=== PATIENT | male | born 1960 | race Caucasian/White ===

== ENCOUNTER 2016-10-11 12:24 | Inpatient (IN) ==
[2016-10-11] MEDS ORDERED: FUROSEMIDE 100 MG/10 ML VIAL IV STA (12:36)
[2016-10-11] MEDS ORDERED: FUROSEMIDE 40 MG/4 ML VIAL ONE (12:38)
[2016-10-11] MEDS ORDERED: NITROGLYCERIN 2% OINT 1 INCH/GM PACK TOP ONE (12:38)
[2016-10-11 12:50] LABS: Basophils # 0.1 10*3/uL (0.0-0.2); Basophils % 0.7 % (0.0-0.8); Hemoglobin 16.6 GM/DL (14.0-18.0); Immature Granulocytes % 0.6 %; Immature Granulocytes Absolute 0.06 #; Lymphocytes # 0.8 10*3/uL (1.4-4.0); Lymphocytes % 7.8 % (21.2-54.2); Mean Corpuscular HGB Conc 32.5 GM/DL (32-36); Mean Corpuscular Hemoglobin 31 PG (27-34); Mean Corpuscular Volume 95.9 FL (87-102); Mean Platelet Volume 10.1 FL (9.6-12.0); Monocytes # 0.4 10*3/uL (0.11-0.8); Monocytes % 3.9 % (1.7-12.7); Neutrophils # 8.6 10*3/uL (1.4-7.4); Platelet Count 220 T/CUMM (130-400); Red Blood Count 5.32 MC/CUMM (3.8-5.5); Red Cell Distribution Width 14.7 % (9.3-17.3); White Blood Count 9.9 T/CUMM (4-12)
--- NOTE | 2016-10-11 12:50 | XRay Report ---
Portable chest Date: 10/11/2016 Clinical history: Shortness of breath Comparison: None Technique: Portable AP sitting chest Findings: The heart is minimally to moderately enlarged with prior median sternotomy. Left subclavian atrioventricular pacemaker. Prominent pulmonary vasculature with diffuse parenchymal findings. Lane B lines are noted with small pleural effusions. Asymmetric density in the right infrahilar location. Degenerative changes are noted. Impression: Cardiomegaly with prior median sternotomy and left subclavian atrioventricular permanent pacemaker. Moderate pulmonary edema with small pleural effusions. It is difficult to exclude infiltration or other pathology in the right infrahilar location and follow-up chest x-ray is recommended. PROCEDURE INTERPRETED AT [facility] DEPARTMENT OF RADIOLOGY Final Report Signed by: Dr. Shelley Mejias
[2016-10-11] MEDS ORDERED: MORPHINE 2 MG/1 ML SYRINGE ONE (12:55)
--- NOTE | 2016-10-11 12:58 | EKG Report ---
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
[2016-10-11] MEDS ORDERED: NITROGLYCERIN 2% OINT 1 INCH/GM PACK TOP STA (13:21)
[2016-10-11 13:30] LABS: Bilirubin,Total 0.4 MG/DL (0.2-1.0); Calcium 8.1 MG/DL (8.5-10.1); Magnesium 2.1 MG/DL (1.8-2.4); Osmolality,Calculated 288.1 MOS/KG (273-304); Potassium 3.9 MMOL/L (3.5-5.1); Total Protein 7.6 G/DL (6.4-8.3); Troponin I Only 0.037 NG/ML (0.00-0.045)
[2016-10-11] MEDS ORDERED: NITROGLYCERIN DRIP 50 MG/250 ML BOTTLE IV ONE (14:02)
[2016-10-11] MEDS ORDERED: PROPOFOL 1,000 MG/100 ML BOTTLE IV ONE ×2 (14:10→17:53)
--- NOTE | 2016-10-11 14:13 | Emergency Department Note ---
Clementine Marcus Hilary, am scribing for, and in the presence of, Armando Chowdhury MD 12:51. Luciana Marcus Phillip K, MD, personally performed the services described in this documentation, ascribed by Sarah Spring in my presence, and it is both accurate and complete 412 . Arrival - Arrival Chief Complaint: Shortness of Breath Stated Complaint: shortness of breath ED Nursing Triage Note: Pt was transfer from [facility] for SOB - pt states that he started having SOB last night - pt on NRB 100 percent - pt very anxious and stating that he cant keep mask on o2 sat 81 percent at time of triage Mode of Arrival: Stretcher Limitations: No Limitations Source: Patient, RN Notes Reviewed Time Seen by Provider: 10/11/16 12:36 - History of Present Illness HPI Narrative: Pt is a 56 y/o male transferring from [facility] for complaints of SOB which onset last night. Patient confirmed coughing, throwing up, gagging and fever but denies swelling of legs and anemia. Patient also says he has abdominal pain in his LLQ and in the center. Pt has a PMHx of CHF, HTN, Pacemaker(Defib), cardiovascular problems (stents), and GI problems. No other complaints or problems stated in ED. Onset (ago): hour(s) Allergies/Adverse Reactions: Allergies Allergy/AdvReac Type Severity Reaction Status Date / Time meperidine [From Demerol] Allergy Unknown/Unable Verified 10/11/16 12:25 to obtain Home Medications: Home Medications Medication Instructions Recorded Confirmed Type Albuterol Sulfate [Ventolin HFA] 2 puff INH Q6H PRN 10/11/16 10/11/16 History Amiodarone Tab [Cordarone Tab] 200 mg PO DAILY 10/11/16 10/11/16 History Apixaban [Eliquis] 5 mg PO Q12H 10/11/16 10/11/16 History Benazepril [Lotensin] 5 mg PO DAILY 10/11/16 10/11/16 History Carvedilol [Coreg] 6.25 mg PO BID 10/11/16 10/11/16 History Ezetimibe [Zetia] 10 mg PO DAILY 10/11/16 10/11/16 History Furosemide Tab [Lasix Tab] 40 mg PO QPM 10/11/16 10/11/16 History Levothyroxine Tab [Synthroid Tab] 150 mcg PO DAILY 10/11/16 10/11/16 History Nitroglycerin Sl Tab [Nitrostat] 0.4 mg SL Q5M PRN 10/11/16 10/11/16 History Tamsulosin [Flomax] 0.4 mg PO DAILY 10/11/16 10/11/16 History Review of System - Review of System Constitutional: Present: fever Respiratory: Present: cough Cardiovascular: Absent: edema Gastrointestinal: Present: abdominal pain (LLQ), nausea, vomiting Medical,Surgical,& Family Hx - Medical History Medical History: noncontributory Cardio: History of: CHF, Hypertension, Pacemaker (Defib), Cardiovascular Problems (stents - [place]) Gastrointestinal: History of: GI Problems (ulcer) - Social History Smoking Status: Current every day smoker Frequency of Alcohol Use: None Type of Drug Use: None Exam Vital Signs: Vital Signs Temperature 97.2 F L 10/11/16 12:32 Pulse Rate 90 10/11/16 12:32 Respiratory Rate 22 10/11/16 12:32 Blood Pressure 173/101 10/11/16 12:32 O2 Sat by Pulse Oximetry 81 L 10/11/16 12:26 - General General appearance: alert, in no apparent distress - Head Head exam: Present: atraumatic, normocephalic - Eye Eye exam: Present: normal appearance, PERRL - ENT ENT exam: Present: mucous membranes moist, TM's normal bilaterally. Absent: mucous membranes dry - Neck Neck exam: Present: full ROM, trachea midline. Absent: tenderness - Chest Chest inspection: Present: symmetric chest wall rise. Absent: tenderness - Respiratory Respiratory exam: Present: rales - Cardiovascular Cardiovascular exam: Present: tachycardia - Abdominal Exam Abdominal exam: Present: soft, tenderness (Epigastric tenderness and LLQ) - Extremities Exam Extremities exam: Present: full ROM. Absent: tenderness, pedal edema - Back Exam Back exam: Present: full ROM. Absent: tenderness - Neurological Exam Neurological exam: Present: alert, oriented X3, CN II-XII intact. Absent: motor sensory deficit - Psychiatric Psychiatric exam: Present: normal affect, normal mood - Skin Skin exam: Present: warm, dry, intact, normal color. Absent: rash Course Course Narrative: Patient discussed with Dr. Barkley. Procedures - Intubation Time out performed: Yes sedative: Etomidate Mg Given: 20 paralytic: Succinylcholine Mg Given: 200 Laryngoscope: Jamel Assist Device Used: fiber optic device ET Tube Size: 8 ET Tube Uncuffed: No Tube Secured Depth (cm): 26 Tube Secured Location: lips Tube Placement Confirmation: visualized tube passing through cords, equal breath sounds bilaterally, confirmation detector color change Patient Tolerated Procedure: well Intubation Complications: none Results - Labs CBC & BMP: 10/11/16 12:39 10/11/16 12:39 Lab Results: I have reviewed the patients labs (BNP is 1920) Labs: Laboratory Tests 10/11/16 12:39 WBC 9.9 RBC 5.32 Hgb 16.6 Hct 51.0 Neut % (Auto) 87.0 H Lymph % (Auto) 7.8 L Neut # (Auto) 8.6 H Lymph # (Auto) 0.8 L - Diagnostic Findings Procedure: Chest x-ray: report reviewed by me (Cardiomegaly with prior median sternotomy and left subclavian atrioventricular permanent pacemaker. Moderate pulmonary edema with small pleural effusions. It is difficult to exclude infiltration or other pathology in the right infrahilar location adn follow-up chest x-ray is recommended.) Critical Care Time Critical Care Time: Yes Total Critical Care Time: 30 Attestation: Patient presents the ED and pulmonary edema. We tried offloading with nitrates and IV Lasix to normal male. Patient very little output of urine. Patient began to tire out so we intubated the patient. Patient's pressure remains elevated so we will start a nitroglycerin infusion. Disposition Clinical Impression: Pulmonary edema, Respiratory failure Case discussed with: patient, patient's physician Disposition: Still a Patient Condition: Critical Additional Instructions: Admit to Dr. Barkley ICU
[2016-10-11] MEDS ORDERED: DOPamine 800 MG/250 ML PREMIX IV ONE (14:33)
--- NOTE | 2016-10-11 14:51 | Cardiology History & Physical ---
Assessment and Plan - Time spent with patient Time spent with patient: Greater than 30 minutes (1) CAD (coronary artery disease) Status: Chronic Assessment and plan: See plan of care listed below Current Visit: Yes (2) Status post aorto-coronary artery bypass graft Status: Chronic Assessment and plan: See plan of care listed below Current Visit: Yes (3) Dyslipidemia Status: Chronic Assessment and plan: See plan of care listed below Current Visit: Yes (4) Hypotension Status: Acute Current Visit: Yes (5) Abnormal chest x-ray Status: Acute Assessment and plan: See plan of care listed below Current Visit: Yes (6) Pulmonary edema Status: Acute Assessment and plan: See plan of care listed below Current Visit: Yes Qualifiers: Chronicity: acute Qualified Code(s): J81.0 - Acute pulmonary edema (7) Respiratory failure Status: Acute Assessment and plan: See plan of care listed below Current Visit: Yes Qualifiers: Chronicity: acute History of Present Illness Chief complaint: CHF, respiratory failure History of present illness: Patient is being seen in the Emergency Department. Patient is intubated and sedated and the majority of this information is taken from medical records and staff. Risk factors include: known coronary artery disease status post CABG (thought to be in the last year), history of hypertension, dyslipidemia, tobaccoism. History of pacemaker and/or defibrillator. I am told he has had several stents placed in [place], [place] though I do not know when or locations of stent. Patient was transferred in via ambulance from [facility] to [facility] after experiencing worsening shortness of breath. On arrival to the emergency department patient was severely tachypneic, wearing 100% nonrebreather with an SPO2 saturation noted to be 81%. He was electively intubated in the emergency department. Review of his chest x-ray reveals pulmonary edema and probable pneumonia. In the emergency room, blood pressure is noted to be 56/40, heart rate of 68. After dopamine was initiated, blood pressure and increased to 80/ 60. Appears to be in regular sinus rhythm with some pacing. It is my understanding that he was able to speak to his prior to being intubated and she is on her way. Patient did receive 1 or 2 units of IV fluid for resuscitation from the transfer to our unit. He has been given 80 mg of IV Lasix on arrival to the ER. Reviewing his home medications it is apparent that he must have atrial fibrillation as he takes Eliquis and Amiodarone. I see no aspirin or Plavix which leads me to believe that his stents are greater than 12 months old. Awaiting his records as we have requested. Discussed with Dr. Barkley and he is agreeable to admit patient. Continue to cycle CIEs, EKG. Echo stat, Dopamine and titrate to increase BP. IV Levaquin, FRIED culture. Continue with resuscitative measures, airway secure. 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 Interrogate his device tomorrow morning. ASSESSMENT/PLAN: 1. RESPIRATORY FAILURE -intubated at this point. Continue to support with mechanical ventilation. 2. CHF -at this time, it is difficult to know if his CHF is acute on chronic. Certainly this is an acute exacerbation [place] [employer] classification IV. When blood pressure will allow, we will introduce appropriate medications to treat heart failure. He is currently received IV Lasix 80 mg 3. HYPOTENSION -dopamine titration 4. POSSIBLE PNEUMONIA -start Levaquin 500 mg IV daily daily chest x-ray 5. ATRIAL FIBRILLATION -suspect history of atrial fibrillation. Continue his amiodarone. Will hold his Eliquis should the patient need some type of intervention. Will cover with Lovenox accordingly. 6. DYSLIPIDEMIA -incorporate lipid-lowering agent when able. Home Medications Medication Instructions Recorded Confirmed Type Albuterol Sulfate [Ventolin HFA] 2 puff INH Q6H PRN 10/11/16 10/11/16 History Amiodarone Tab [Cordarone Tab] 200 mg PO DAILY 10/11/16 10/11/16 History Apixaban [Eliquis] 5 mg PO Q12H 10/11/16 10/11/16 History Benazepril [Lotensin] 5 mg PO DAILY 10/11/16 10/11/16 History Carvedilol [Coreg] 6.25 mg PO BID 10/11/16 10/11/16 History Ezetimibe [Zetia] 10 mg PO DAILY 10/11/16 10/11/16 History Furosemide Tab [Lasix Tab] 40 mg PO QPM 10/11/16 10/11/16 History Levothyroxine Tab [Synthroid Tab] 150 mcg PO DAILY 10/11/16 10/11/16 History Nitroglycerin Sl Tab [Nitrostat] 0.4 mg SL Q5M PRN 10/11/16 10/11/16 History Tamsulosin [Flomax] 0.4 mg PO DAILY 10/11/16 10/11/16 History Allergies Allergy/AdvReac Type Severity Reaction Status Date / Time meperidine [From Demerol] Allergy Unknown/Unable Verified 10/11/16 12:25 to obtain ROS unobtainable: due to endotracheal tube Medical,Surgical,& Family Hx - Medical History Cardio: History of: CHF, CAD, Hypertension, Pacemaker (Defib), Cardiovascular Problems (stents - [place], [place]) Gastrointestinal: History of: GI Problems (ulcer) - Social History Smoking Status: Current every day smoker Frequency of Alcohol Use: None Type of Drug Use: None Cardiology Physical Exam - Constitutional Vitals: Vital Signs Temp Pulse Resp BP Pulse Ox 97.2 F L 90 12 173/101 81 L 10/11/16 12:32 10/11/16 12:32 10/11/16 14:00 10/11/16 12:32 10/11/16 12:26 Intake and Output 10/10/16 10/11/16 10/11/16 23:59 07:59 15:59 Other: Weight 90.718 kg Patient Weight 10/11/16 23:59 Weight 90.718 kg Exam: General: [Appears critically ill. Intubated and sedated.] HEENT: [normocephalic, atraumatic. Mucous membranes moist. No jaundice noted. Conjunctiva moist and clear, sclerae anicteric] Neck: Difficult to assess for JVD due to habitus. No obvious thyromegaly or HJR noted. No carotid bruit appreciated. No tracheal deviation noted Cardiac: [Regular rate and rhythm.] [No obvious murmur rub or gallop.]. Well- healed midsternal incision Lungs: [Rales noted posteriorly, coarse sounds throughout. Abdomen: Soft, bowel sounds hypoactive nontender and nondistended. No abdominal bruit or thrill noted. No masses noted. Musculoskeletal: No fluid collection. Decreased range of motion is noted. Extremities: No clubbing, cyanosis noted. [ No edema noted.] Upper extremity pulses 1+. Lower extremity pulses 1+. Capillary refill less than 3 seconds. Skin: No unusual lesions or rashes. No skin breakdown appreciated. Neuro: No essential tremor noted. This time unable to perform further neuro exam due to patient's intubation and sedated state Result/EKG - Labs CBC & BMP: 10/11/16 12:39 10/11/16 12:39 Lab Results: I have reviewed the past 24 hour labs Labs: Laboratory Results - last 24 hr 10/11/16 10/11/16 10/11/16 12:39 12:39 12:39 WBC 9.9 RBC 5.32 Hgb 16.6 Hct 51.0 MCV 95.9 MCH 31 MCHC 32.5 RDW 14.7 Plt Count 220 MPV 10.1 Neut % (Auto) 87.0 H Lymph % (Auto) 7.8 L [place] % (Auto) 3.9 Eos % (Auto) 0.0 Baso % (Auto) 0.7 Neut # (Auto) 8.6 H Lymph # (Auto) 0.8 L [place] # (Auto) 0.4 Eos # (Auto) 0.0 Baso # (Auto) 0.1 Immature Gran % 0.6 Nucleated RBC % 0.0 Immature Gran # 0.06 Nucleated RBCs # 0.00 D-Dimer, Quantitative <= 0.5 Sodium 142 Potassium 3.9 Chloride 108 H Carbon Dioxide 23 Anion Gap 14.9 BUN 21 H Creatinine 1.50 H GFR Calculation 64 BUN/Creatinine Ratio 14.00 Glucose 159 H Calculated Osmolality 288.1 Calcium 8.1 L Magnesium 2.1 Total Bilirubin 0.40 AST 21 ALT 18 Alkaline Phosphatase 84 Troponin I 0.037 B-Natriuretic Peptide Total Protein 7.6 Albumin 4.0 Globulin 3.6 H Albumin/Globulin Ratio 1.1 10/11/16 12:39 WBC RBC Hgb Hct MCV MCH MCHC RDW Plt Count MPV Neut % (Auto) Lymph % (Auto) [place] % (Auto) Eos % (Auto) Baso % (Auto) Neut # (Auto) Lymph # (Auto) [place] # (Auto) Eos # (Auto) Baso # (Auto) Immature Gran % Nucleated RBC % Immature Gran # Nucleated RBCs # D-Dimer, Quantitative Sodium Potassium Chloride Carbon Dioxide Anion Gap BUN Creatinine GFR Calculation BUN/Creatinine Ratio Glucose Calculated Osmolality Calcium Magnesium Total Bilirubin AST ALT Alkaline Phosphatase Troponin I B-Natriuretic Peptide 1920 H Total Protein Albumin Globulin Albumin/Globulin Ratio - Diagnostic Findings Procedure: Chest x-ray: report reviewed by me - EKG EKG results: interpreted by me EKG shows: sinus rhythm
[2016-10-11] MEDS: MORPHINE 2 MG/1 ML SYRINGE IV PRN (15:16)
[2016-10-11] MEDS: DOPamine 800 MG/250 ML PREMIX IV SCH (15:17)
[2016-10-11] MEDS ORDERED: MIDAZOLAM 10 MG/2 ML VIAL IV STA (15:19)
[2016-10-11] MEDS ORDERED: ETOMIDATE 20 MG/10 ML VIAL IV STA (15:22)
[2016-10-11] MEDS ORDERED: SUCCINYLCHOLINE 200 MG/10 ML VIAL IV STA (15:23)
[2016-10-11] MEDS ORDERED: NITROGLYCERIN DRIP 50 MG/250 ML BOTTLE IV SCH (15:30)
[2016-10-11] MEDS ORDERED: ONDANSETRON 4 MG/2 ML VIAL IV PRN (15:33)
[2016-10-11] MEDS ORDERED: DOCUSATE SODIUM 100 MG CAPSULE PO PRN (15:33)
[2016-10-11] MEDS ORDERED: ACETAMINOPHEN 325 MG TABLET PO PRN (15:33)
[2016-10-11] MEDS ORDERED: LACTULOSE 20 GM/30 ML UDCUP PO PRN (15:33)
[2016-10-11] MEDS ORDERED: ZALEPLON 5 MG CAPSULE PO PRN (15:33)
[2016-10-11] MEDS: PROPOFOL 1,000 MG/100 ML BOTTLE IV SCH ×2 (15:35→22:07)
[2016-10-11] MEDS ORDERED: MAGNESIUM SULF RIDER 2 GM in PREMIX 1 EACH IV PRN (15:40)
[2016-10-11] MEDS ORDERED: MAGNESIUM SULF RIDER 4 GM in PREMIX 1 EACH IV PRN (15:40)
[2016-10-11] MEDS ORDERED: POTASSIUM CHLORIDE RIDER 10 MEQ in PREMIX 1 EACH IV PRN (15:40)
[2016-10-11] MEDS ORDERED: DEXTROSE 50% 25 GM/50 ML VIAL IV PRN (15:51)
[2016-10-11] MEDS ORDERED: GLUCAGON 1 MG VIAL IM PRN (15:51)
[2016-10-11] MEDS ORDERED: PANTOPRAZOLE 40 MG TABLET PO SCH (16:00)
[2016-10-11] MEDS ORDERED: FUROSEMIDE 40 MG/4 ML VIAL IV SCH (16:00)
--- NOTE | 2016-10-11 16:14 | ECHO Report ---
Boy Atkinson Exam Date: 10/11/2016 15:19 Referring Physician: Technologist: Gayla Castelan RDCS Age: 56 Ht (in): 74 Wt (lb): 200 Gender: M Exam Location: [facility] Echo Indications: Acute respiratory failure, unspecified whether with hypoxia or hypercapnia, Shortness of breath, Essential (primary) hypertension, Abnormal CXR, CAD with previoius stents, Cough, Fever, Pulmonary edema, Dyslipidemia, Heart failure, unspecified, Nicotine dependence, cigarettes, uncomplicated, Presence of automatic (implantable) cardiac defibrillator BP: 129 / 81 HR: 126 Rhythm: Sinus Technical Quality: IMPRESSIONS Left ventricular ejection fraction is estimated at 10-15 %. Grade III/IV diastolic dysfunction (restrictive filling pattern), severely elevated filling pressures. Normal right ventricular size. The right atrium is mildly enlarged. The left atrium is mildly enlarged. Mildly thickened mitral valve. Trace mitral valve regurgitation. Aortic valve sclerosis. No aortic valve regurgitation. Moderate tricuspid valve regurgitation. [id number]. Trace pulmonary valve regurgitation. Normal pericardium without effusion. Normal ascending aorta dimension. MEASUREMENTS (Male / Female) Normal Values 2D ECHO LV Diastolic Diameter PLAX 6.1 cm 4.2 - 5.9 / 3.9 - 5.3 cm LV Systolic Diameter PLAX 6.8 cm LV Fractional Shortening PLAX -10.3 % IVS Diastolic Thickness 1.0 cm 0.6 - 1.0 / 0.6 - 0.9 cm LVPW Diastolic Thickness 1.0 cm 0.6 - 1.0 / 0.6 - 0.9 cm RV Internal Dim ED PLAX 3.2 cm Aortic Root Diameter 3.4 cm LA Systolic Diameter LX 4.8 cm 3.0 - 4.0 / 2.7 - 3.8 cm FINDINGS Left Ventricle Moderately increased left ventricular cavity size. Normal left ventricular wall thickness. Left ventricular ejection fraction is estimated at 10-15 %.Grade III/IV diastolic dysfunction (restrictive filling pattern), severely elevated filling pressures. . Abnormal septal motion. Right Ventricle Normal right ventricular size. Catheter/pacemaker wire visualized in the right ventricle. Right Atrium The right atrium is mildly enlarged. Left Atrium The left atrium is mildly enlarged. Mitral Valve Mildly thickened mitral valve. Trace mitral valve regurgitation. Aortic Valve Aortic valve sclerosis. No aortic valve regurgitation. Tricuspid Valve Morphologically normal tricuspid valve. Moderate tricuspid valve regurgitation. [id number]. Pulmonic Valve Morphologically normal pulmonic valve. Trace pulmonary valve regurgitation. Pericardium Normal pericardium without effusion. Aorta Normal ascending aorta dimension. Marcelino Barkley (Electronically Signed) Final Date: 11 October 2016 16:13
--- NOTE | 2016-10-11 16:33 | EKG Report ---
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 Electronically Signed On 10-11-16 17:17:56 CDT by CHERIE ALCALA [id number]
[2016-10-11] MEDS ORDERED: ENOXAPARIN 80 MG/0.8 ML SYRINGE SUBCUT ONE (16:50)
[2016-10-11] MEDS ORDERED: LEVOFLOXACIN INJ 100 ML IV ONE (16:50)
[2016-10-11] MEDS: ENOXAPARIN 80 MG/0.8 ML SYRINGE SUBCUT SCH (17:05)
--- NOTE | 2016-10-11 17:10 | XRay Report ---
Portable chest Date: 10/11/2016 Clinical history: Endotracheal and nasogastric tube placement Comparison: 10/11/2016 Technique: Portable AP sitting chest Findings: Persistent cardiomegaly with prior median sternotomy. Left subclavian atrioventricular permanent pacemaker. Endotracheal tube and nasogastric tube are in satisfactory position. Progressive diffuse parenchymal findings especially the right infrahilar location with small pleural effusions. Degenerative changes are noted. Impression: Endotracheal tube and nasogastric tube in satisfactory position. Progressive significant pulmonary edema/bilateral pneumonia. Findings remain more prominent in the right infrahilar location and follow-up chest x-ray is recommended to document clearing and exclude additional underlying pathology. Small pleural effusions. Status post median sternotomy with left subclavian atrioventricular permanent pacemaker. PROCEDURE INTERPRETED AT [facility] DEPARTMENT OF RADIOLOGY Final Report Signed by: Dr. Shelley Mejias
[2016-10-11 17:12] LABS: Troponin I Only 0.074 NG/ML (0.00-0.045)
[2016-10-11] MEDS: LEVOFLOXACIN INJ 500 MG in PREMIX 1 EACH IV SCH (17:21)
[2016-10-11] MEDS ORDERED: SUCCINYLCHOLINE 200 MG/10 ML VIAL ONE (18:12)
[2016-10-11] MEDS ORDERED: ETOMIDATE 20 MG/10 ML VIAL IV ONE (18:12)
[2016-10-11 18:23] LABS: ABG Base Excess -2.8 MMOL/L (-2.5-2.5); ABG Oxygen Saturation 93.1 % (95-100); ABG PH 7.393 (7.35-7.45); Allen Test Positive; Pt O2 Delivery Device Ventilator
[2016-10-11] MEDS: INSULIN REGULAR 100 UNIT/ML SUBCUT SCH ×2 (18:34→21:14)
[2016-10-11] MEDS: ASPIRIN EC 325 MG TABLET PO SCH (18:45)
[2016-10-11] MEDS ORDERED: ALBUTEROL 2.5 MG/3 ML NEB RESP TX PRN (19:00)
[2016-10-11] MEDS: ALBUTEROL/IPRATROPIUM 3 ML NEB RESP TX SCH ×2 (19:22→23:43)
[2016-10-11] MEDS ORDERED: CARVEDILOL 6.25 MG TABLET PO SCH (21:00)
[2016-10-11] MEDS: FUROSEMIDE 40 MG/4 ML VIAL IV SCH (21:14)
[2016-10-12 00:17] LABS: Troponin I Only 0.113 NG/ML (0.00-0.045)
[2016-10-12] MEDS: MORPHINE 2 MG/1 ML SYRINGE IV PRN ×2 (02:29→23:48)
[2016-10-12] MEDS: PROPOFOL 1,000 MG/100 ML BOTTLE IV SCH ×8 (02:37→23:20)
[2016-10-12 03:19] LABS: ABG Base Excess -0.8 MMOL/L (-2.5-2.5); ABG HCO3 22.2 MMOL/L (20-26); ABG Oxygen Saturation 99.5 % (95-100); ABG PCO2 32.6 MM HG (35-48); ABG PH 7.451 (7.35-7.45); ABG PO2 318.5 MM HG (80-95); ABG TCO2 23.2 MMOL/L (23-27); Allen Test Positive; Pt O2 Delivery Device Ventilator
[2016-10-12] MEDS: ALBUTEROL/IPRATROPIUM 3 ML NEB RESP TX SCH ×6 (03:54→23:47)
[2016-10-12 04:53] LABS: Basophils % 0.3 % (0.0-0.8); Eosinophils % 0.1 % (0.00-10.9); Hematocrit 52.8 VOL% (42.0-52.0); Hemoglobin 17.3 GM/DL (14.0-18.0); Immature Granulocytes % 0.6 %; Immature Granulocytes Absolute 0.08 #; Lymphocytes # 1.8 10*3/uL (1.4-4.0); Lymphocytes % 12.7 % (21.2-54.2); Mean Corpuscular HGB Conc 32.8 GM/DL (32-36); Mean Corpuscular Hemoglobin 31 PG (27-34); Mean Corpuscular Volume 93.5 FL (87-102); Mean Platelet Volume 11.6 FL (9.6-12.0); Monocytes # 1.4 10*3/uL (0.11-0.8); Monocytes % 10.1 % (1.7-12.7); Neutrophils # 10.7 10*3/uL (1.4-7.4); Neutrophils % 76.2 % (38.7-73.9); Platelet Count 183 T/CUMM (130-400); Red Blood Count 5.65 MC/CUMM (3.8-5.5); Red Cell Distribution Width 14.6 % (9.3-17.3); White Blood Count 14.1 T/CUMM (4-12)
[2016-10-12 05:14] LABS: Hypochromasia Slight; Microcytosis Slight; Platelet Estimate Adequate
[2016-10-12 05:34] LABS: Calcium 8.6 MG/DL (8.5-10.1); Osmolality,Calculated 291.7 MOS/KG (273-304); Risk Ratio 3.84; Total Protein 7.4 G/DL (6.4-8.3)
[2016-10-12] MEDS: ENOXAPARIN 80 MG/0.8 ML SYRINGE SUBCUT SCH (05:57)
--- NOTE | 2016-10-12 06:29 | Cardiology Progress Note ---
Cardiology - PN: Subj Interval history: Cardiology note 56-year-old man with ischemic cardiomyopathy transferred from [facility] yesterday with acute pulmonary edema. Patient intubated in the emergency room. Still hypotensive on dopamine at 7 mics Telemetry shows sinus rhythm with ventricular pacing in the 70s-80s O2 sat 99 on 60% FiO2 Blood pressure 130/86 on 7 mics of dopamine Regular rhythm no murmur Decreased breath sounds bibasilar crackles Abdomen soft benign No leg edema Lab data today White count 14.1 hemoglobin 17.3 hematocrit 52.8 Sodium 145 potassium 4.0 chloride 108 CO2 20 BUN 24 creatinine 1.40 BNP 1920 Negative troponin Echo shows ejection fraction of 15-20% with mildly dilated left atrium, aortic sclerosis, normal RV function, moderate TR PA pressure 45 and grade 3 diastolic dysfunction no effusion Impression Pulmonary edema Combined systolic and diastolic heart failure Ischemic cardia myopathy EF 15-20% Status post CABG 1 year ago Status post defibrillator Plan IV Lasix 80 mg twice daily BMP in a.m. Wean dopamine as tolerated Wean ventilator as tolerated No family present at this time Continue amiodarone Decrease Lovenox Exam (Progress Note) - Constitutional Vitals: Period Temp Pulse Resp BP Sys/Sims Pulse Ox Last 24 Hr 97.7 F-98.4 F 70-111 12-19 80-155/55-98 90-100 Result/EKG - Labs CBC & BMP: 10/12/16 02:47 10/12/16 02:47 Labs: Laboratory Results - last 24 hr 10/11/16 10/11/16 10/11/16 16:40 16:40 17:35 WBC RBC Hgb Hct MCV MCH MCHC RDW Plt Count MPV Neut % (Auto) Lymph % (Auto) [place] % (Auto) Eos % (Auto) Baso % (Auto) Neut # (Auto) Lymph # (Auto) [place] # (Auto) Eos # (Auto) Baso # (Auto) Immature Gran % Nucleated RBC % Immature Gran # Nucleated RBCs # Platelet Estimate Hypochromasia Microcytosis ABG pH ABG pCO2 ABG pO2 ABG HCO3 ABG Total CO2 ABG O2 Saturation ABG Base Excess FiO2 Sodium Potassium Chloride Carbon Dioxide Anion Gap BUN Creatinine GFR Calculation BUN/Creatinine Ratio Glucose POC Glucose 143 H Calculated Osmolality Calcium Total Bilirubin AST ALT Alkaline Phosphatase Total Creatine Kinase 209 CK-MB (CK-2) 1.5 Troponin I 0.074 H D Total Protein Albumin Globulin Albumin/Globulin Ratio Triglycerides Cholesterol LDL Cholesterol VLDL Cholesterol HDL Cholesterol Heart Disease Risk Ratio TSH 3rd Generation 0.669 10/11/16 10/11/16 10/11/16 17:53 18:34 20:53 WBC RBC Hgb Hct MCV MCH MCHC RDW Plt Count MPV Neut % (Auto) Lymph % (Auto) [place] % (Auto) Eos % (Auto) Baso % (Auto) Neut # (Auto) Lymph # (Auto) [place] # (Auto) Eos # (Auto) Baso # (Auto) Immature Gran % Nucleated RBC % Immature Gran # Nucleated RBCs # Platelet Estimate Hypochromasia Microcytosis ABG pH 7.393 ABG pCO2 35.0 ABG pO2 67.0 L ABG HCO3 22.0 ABG Total CO2 18.0 L ABG O2 Saturation 93.1 L ABG Base Excess -2.8 L FiO2 100.00 Sodium Potassium Chloride Carbon Dioxide Anion Gap BUN Creatinine GFR Calculation BUN/Creatinine Ratio Glucose POC Glucose 129 H 116 H Calculated Osmolality Calcium Total Bilirubin AST ALT Alkaline Phosphatase Total Creatine Kinase CK-MB (CK-2) Troponin I Total Protein Albumin Globulin Albumin/Globulin Ratio Triglycerides Cholesterol LDL Cholesterol VLDL Cholesterol HDL Cholesterol Heart Disease Risk Ratio TSH 3rd Generation 10/11/16 10/12/16 10/12/16 23:41 02:47 02:47 WBC 14.1 H D RBC 5.65 H Hgb 17.3 Hct 52.8 H MCV 93.5 MCH 31 MCHC 32.8 RDW 14.6 Plt Count 183 MPV 11.6 Neut % (Auto) 76.2 H Lymph % (Auto) 12.7 L [place] % (Auto) 10.1 Eos % (Auto) 0.1 Baso % (Auto) 0.3 Neut # (Auto) 10.7 H Lymph # (Auto) 1.8 [place] # (Auto) 1.4 H Eos # (Auto) 0.0 Baso # (Auto) 0.0 Immature Gran % 0.6 Nucleated RBC % 0.0 Immature Gran # 0.08 Nucleated RBCs # 0.00 Platelet Estimate Adequate Hypochromasia Slight Microcytosis Slight ABG pH ABG pCO2 ABG pO2 ABG HCO3 ABG Total CO2 ABG O2 Saturation ABG Base Excess FiO2 Sodium 145 Potassium 4.0 Chloride 108 H Carbon Dioxide 20 L Anion Gap 21.0 H BUN 24 H Creatinine 1.40 H GFR Calculation 69 BUN/Creatinine Ratio 17.00 Glucose 98 POC Glucose Calculated Osmolality 291.7 Calcium 8.6 Total Bilirubin 1.00 AST 31 ALT 19 Alkaline Phosphatase 75 Total Creatine Kinase 209 CK-MB (CK-2) 1.7 Troponin I 0.113 H D Total Protein 7.4 Albumin 4.0 Globulin 3.4 Albumin/Globulin Ratio 1.1 Triglycerides 150 Cholesterol 219 H LDL Cholesterol 143.0 VLDL Cholesterol 30.0 HDL Cholesterol 57 Heart Disease Risk Ratio 3.84 TSH 3rd Generation 10/12/16 03:01 WBC RBC Hgb Hct MCV MCH MCHC RDW Plt Count MPV Neut % (Auto) Lymph % (Auto) [place] % (Auto) Eos % (Auto) Baso % (Auto) Neut # (Auto) Lymph # (Auto) [place] # (Auto) Eos # (Auto) Baso # (Auto) Immature Gran % Nucleated RBC % Immature Gran # Nucleated RBCs # Platelet Estimate Hypochromasia Microcytosis ABG pH 7.451 H ABG pCO2 32.6 L ABG pO2 318.5 H ABG HCO3 22.2 ABG Total CO2 23.2 ABG O2 Saturation 99.5 ABG Base Excess -0.8 FiO2 100.00 Sodium Potassium Chloride Carbon Dioxide Anion Gap BUN Creatinine GFR Calculation BUN/Creatinine Ratio Glucose POC Glucose Calculated Osmolality Calcium Total Bilirubin AST ALT Alkaline Phosphatase Total Creatine Kinase CK-MB (CK-2) Troponin I Total Protein Albumin Globulin Albumin/Globulin Ratio Triglycerides Cholesterol LDL Cholesterol VLDL Cholesterol HDL Cholesterol Heart Disease Risk Ratio TSH 3rd Generation Quality Measures - VTE Contraindication to Pharmacological VTE Prophylaxis: Already on Theraputic Agent , No Prophylaxis Needed
--- NOTE | 2016-10-12 06:32 | Pulmonology Consult Note ---
Assessment and Plan (1) Ischemic cardiomyopathy Status: Acute Assessment and plan: The patient apparently has a severe ischemic cardiomyopathy with a very reduced ejection fraction. Now he presents with pulmonary edema. Current Visit: Yes (2) Pulmonary edema Status: Acute Assessment and plan: He comes in with pulmonary edema and is on the ventilator. He is getting dopamine and getting diuretics. His oxygenation has improved. Current Visit: Yes Qualifiers: Chronicity: acute Qualified Code(s): J81.0 - Acute pulmonary edema (3) Respiratory failure Status: Acute Assessment and plan: He did require intubation for his respiratory failure. His oxygenation is better. He may have a component of COPD. Current Visit: Yes Qualifiers: Chronicity: acute (4) CAD (coronary artery disease) Status: Chronic Assessment and plan: The patient has had previous bypass surgery and stents. Current Visit: Yes History of Present Illness Chief complaint: Ventilator management History of present illness: Mr. Atkinson is a 56 year old white male that has a history of having previous bypass surgery and has hypertension and is a smoker. He has had a defibrillator in place. He has had multiple stents in the past. He came in with worsening shortness of breath and had to be intubated. He was quite hypoxemic yesterday. His oxygenation is much better today. He is felt to be in congestive heart failure. He does have some right lower lobe infiltrate and may have some pneumonia. It is unclear if he has significant COPD. His blood pressure stable on the ventilator. Home Medications Medication Instructions Recorded Confirmed Type Albuterol Sulfate [Ventolin HFA] 2 puff INH Q6H PRN 10/11/16 10/11/16 History Amiodarone Tab [Cordarone Tab] 200 mg PO DAILY 10/11/16 10/11/16 History Apixaban [Eliquis] 5 mg PO Q12H 10/11/16 10/11/16 History Benazepril [Lotensin] 5 mg PO DAILY 10/11/16 10/11/16 History Carvedilol [Coreg] 6.25 mg PO BID 10/11/16 10/11/16 History Ezetimibe [Zetia] 10 mg PO DAILY 10/11/16 10/11/16 History Furosemide Tab [Lasix Tab] 40 mg PO QPM 10/11/16 10/11/16 History Levothyroxine Tab [Synthroid Tab] 150 mcg PO DAILY 10/11/16 10/11/16 History Nitroglycerin Sl Tab [Nitrostat] 0.4 mg SL Q5M PRN 10/11/16 10/11/16 History Tamsulosin [Flomax] 0.4 mg PO DAILY 10/11/16 10/11/16 History Allergies Allergy/AdvReac Type Severity Reaction Status Date / Time Penicillins Allergy Unknown/Unable Verified 10/11/16 18:21 to obtain meperidine [From Demerol] AdvReac Mild Vomiting Verified 10/11/16 18:20 ROS unobtainable: due to endotracheal tube (He is sedated on the ventilator at present) Exam (Pulmonay) H&P - Constitutional Vitals: Period Temp Pulse Resp BP Sys/Sims Pulse Ox Last 24 Hr 97.7 F-98.4 F 70-111 12-19 80-155/55-98 90-100 General appearance: normal weight, no acute distress, other (He looks comfortable on the ventilator) - Head Head exam: Present: normal inspection, normocephalic - Eye Eye exam: Present: EOMI. Absent: scleral icterus Pupils: Present: SHOBHA - ENT ENT exam: Present: normal exam, other (ET tube is in good position) - Neck Neck exam: Present: normal inspection. Absent: lymphadenopathy, thyromegaly - Respiratory Respiratory exam: Present: clear to auscultation bilaterally. Absent: wheezes - Cardiovascular Cardiovascular exam: Present: regular rate and rhythm, other (He has a midsternal scar). Absent: gallop, JVD, systolic murmur - GI/Abdominal GI/Abdominal exam: Present: normal bowel sounds, soft. Absent: organomegaly, tenderness - Extremities Exam Extremities exam: Absent: calf tenderness, edema - Neurological Exam Neurological exam: Present: other (He does arouse and respond appropriately.) - Psychiatric Psychiatric exam: Present: normal affect - Skin Skin exam: Present: warm, dry Medical,Surgical,& Family Hx - Medical History Cardio: History of: CHF, CAD, Hypertension, Pacemaker (Defib), Cardiovascular Problems (stents - JESUS López) Neurology: No history of: Seizures HEENT: Comment Only: Eye Problem (glasses) Endocrine: History of: Thyroid Disorder Comment Only: Endocrine Problems (takes synthroid) Respiratory: History of: Intubation Genitourinary: Comment Only: Prostate Problems (BPH) Gastrointestinal: History of: GERD, GI Problems (ulcer r/t BC powder use) Musculoskeletal: Comment Only: Musculoskeletal Problems (chronic back pain from fall out of deer stand) - Surgical History Cardiac Surgeries: Comment Only: Cardiac Surgery (CABG X3 december 18, 2015) - Family History Family History: Comment Only: Family Heart Disease (father) - Social History Smoking Status: Current every day smoker Frequency of Alcohol Use: None Type of Drug Use: None Results - Labs CBC & BMP: 10/12/16 02:47 10/12/16 02:47 Labs: His PO2 is 318 with a PCO2 32 and a pH of 7.45 this morning. His PO2 was only 67 yesterday. - Diagnostic Findings Procedure: Chest x-ray: image reviewed by me, report reviewed by me (Chest x- ray does show extensive bilateral infiltrates worse on the right.), Ultrasound: report reviewed by me (His echocardiogram showed an ejection fraction of 10-15%. ) Quality Measures - VTE Contraindication to Pharmacological VTE Prophylaxis: Already on Theraputic Agent , No Prophylaxis Needed
--- NOTE | 2016-10-12 06:46 | XRay Report ---
Referring Physician: Roopa Plunkett Exam: XR chest 1V portable Date: October 12, 2016 at 3:10 AM Reason: Shortness of breath Comparison: Chest one view portable October 11, 2016 Findings: An endotracheal tube, feeding tube and cardiac pacing device are again in place. The cardiac silhouette is again enlarged, and the patient is status post sternotomy. There are opacities within the right mid and lower lung zones and at the left lung base. This is concerning for pneumonia, atelectasis and likely pulmonary edema. No pneumothorax is identified, but there may be minimal right pleural fluid. The osseous structures appear stable. Impression: There has been no significant change. PROCEDURE INTERPRETED AT [facility] DEPARTMENT OF RADIOLOGY Final Report Signed by: Dr. Sacha Ray
[2016-10-12] MEDS: methylPREDNISolone SOD SUC 40 MG/1 ML VIAL IV SCH ×3 (07:20→22:41)
--- NOTE | 2016-10-12 08:07 | EKG Report ---
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
[2016-10-12] MEDS: INSULIN REGULAR 100 UNIT/ML SUBCUT SCH ×4 (08:18→20:20)
[2016-10-12 08:27] LABS: Troponin I Only 0.137 NG/ML (0.00-0.045)
[2016-10-12] MEDS: FUROSEMIDE 40 MG/4 ML VIAL IV SCH ×2 (09:00→16:02)
[2016-10-12] MEDS: EZETIMIBE 10 MG TABLET PO SCH (09:01)
[2016-10-12] MEDS: PANTOPRAZOLE 40 MG VIAL IV SCH (09:01)
[2016-10-12] MEDS: TAMSULOSIN 0.4 MG CAPSULE PO SCH (09:01)
[2016-10-12] MEDS: LEVOTHYROXINE 150 MCG TABLET PO SCH (09:01)
[2016-10-12] MEDS: AMIODARONE 200 MG TABLET PO SCH (09:02)
[2016-10-12] MEDS: ASPIRIN EC 325 MG TABLET PO SCH (09:02)
[2016-10-12] MEDS: DOPamine 800 MG/250 ML PREMIX IV SCH ×2 (12:02→16:08)
[2016-10-12] MEDS: LEVOFLOXACIN INJ 500 MG in PREMIX 1 EACH IV SCH (16:02)
[2016-10-13] MEDS: PROPOFOL 1,000 MG/100 ML BOTTLE IV SCH ×5 (02:38→22:29)
[2016-10-13] MEDS: ALBUTEROL/IPRATROPIUM 3 ML NEB RESP TX SCH ×6 (03:14→23:26)
[2016-10-13 05:27] LABS: Basophils % 0.1 % (0.0-0.8); Hematocrit 48.2 VOL% (42.0-52.0); Hemoglobin 15.8 GM/DL (14.0-18.0); Immature Granulocytes % 0.4 %; Immature Granulocytes Absolute 0.05 #; Lymphocytes # 0.9 10*3/uL (1.4-4.0); Lymphocytes % 6.6 % (21.2-54.2); Mean Corpuscular HGB Conc 32.8 GM/DL (32-36); Mean Corpuscular Hemoglobin 31 PG (27-34); Mean Platelet Volume 10.7 FL (9.6-12.0); Monocytes # 0.6 10*3/uL (0.11-0.8); Monocytes % 4.8 % (1.7-12.7); Neutrophils # 11.3 10*3/uL (1.4-7.4); Neutrophils % 88.1 % (38.7-73.9); Platelet Count 189 T/CUMM (130-400); Red Blood Count 5.13 MC/CUMM (3.8-5.5); Red Cell Distribution Width 14.8 % (9.3-17.3); White Blood Count 12.8 T/CUMM (4-12)
[2016-10-13 06:09] LABS: Albumin 3.6 G/DL (3.4-5.0); Bilirubin,Total 0.7 MG/DL (0.2-1.0); Calcium 8.2 MG/DL (8.5-10.1); Osmolality,Calculated 297.7 MOS/KG (273-304); Potassium 3.7 MMOL/L (3.5-5.1); Total Protein 6.7 G/DL (6.4-8.3)
--- NOTE | 2016-10-13 06:32 | Cardiology Progress Note ---
Cardiology - PN: Subj Interval history: Cardiology note 56-year-old man with ischemic cardia myopathy admitted with pulmonary edema. He completed a total of 11 hours on CPAP yesterday. Telemetry shows sinus rhythm at 70-80 range, rare PVC only Blood pressure 90/60 on 3.4 mics of dopamine O2 sat 100 on 60% FiO2 Regular rhythm distant heart tones, no murmur Decreased breath sounds with rhonchi in the bases but no wheezing No leg edema Lab data today White count 12.8 hemoglobin 15.8 hematocrit 48.2 Sodium 145 potassium 3.7 chloride 107 CO2 25 BUN 36 creatinine 1.40 glucose 126 Impression Ischemic cardia myopathy Pulmonary edema Ejection fraction 15-20% with grade 3 diastolic dysfunction Status post CABG status post defibrillator Active smoker COPD Plan Wean dopamine as tolerated Continue CPAP trials 80 mg Lasix IV twice daily Solu-Medrol nebs and Levaquin BMP in a.m. Exam (Progress Note) - Constitutional Vitals: Period Temp Pulse Resp BP Sys/Sims Pulse Ox Last 24 Hr 97.3 F-99.8 F 70-79 10-20 77-145/58-92 96-100 Result/EKG - Labs CBC & BMP: 10/13/16 04:43 10/13/16 04:42 Labs: Laboratory Results - last 24 hr 10/12/16 10/12/16 10/12/16 07:47 08:01 12:00 WBC RBC Hgb Hct MCV MCH MCHC RDW Plt Count MPV Neut % (Auto) Lymph % (Auto) [place] % (Auto) Eos % (Auto) Baso % (Auto) Neut # (Auto) Lymph # (Auto) [place] # (Auto) Eos # (Auto) Baso # (Auto) Immature Gran % Nucleated RBC % Immature Gran # Nucleated RBCs # Sodium Potassium Chloride Carbon Dioxide Anion Gap BUN Creatinine GFR Calculation BUN/Creatinine Ratio Glucose POC Glucose 92 107 H Calculated Osmolality Calcium Total Bilirubin AST ALT Alkaline Phosphatase Total Creatine Kinase 284 D CK-MB (CK-2) 1.8 Troponin I 0.137 H D Total Protein Albumin Globulin Albumin/Globulin Ratio 10/12/16 10/12/16 10/13/16 15:39 20:13 04:42 WBC RBC Hgb Hct MCV MCH MCHC RDW Plt Count MPV Neut % (Auto) Lymph % (Auto) [place] % (Auto) Eos % (Auto) Baso % (Auto) Neut # (Auto) Lymph # (Auto) [place] # (Auto) Eos # (Auto) Baso # (Auto) Immature Gran % Nucleated RBC % Immature Gran # Nucleated RBCs # Sodium 145 Potassium 3.7 Chloride 107 Carbon Dioxide 25 Anion Gap 16.7 H BUN 36 H Creatinine 1.40 H GFR Calculation 67 BUN/Creatinine Ratio 25.00 H Glucose 126 H POC Glucose 127 H 97 Calculated Osmolality 297.7 Calcium 8.2 L Total Bilirubin 0.70 AST 29 ALT 19 Alkaline Phosphatase 64 Total Creatine Kinase CK-MB (CK-2) Troponin I Total Protein 6.7 Albumin 3.6 Globulin 3.1 Albumin/Globulin Ratio 1.1 10/13/16 04:43 WBC 12.8 H RBC 5.13 Hgb 15.8 Hct 48.2 MCV 94.0 MCH 31 MCHC 32.8 RDW 14.8 Plt Count 189 MPV 10.7 Neut % (Auto) 88.1 H Lymph % (Auto) 6.6 L [place] % (Auto) 4.8 Eos % (Auto) 0.0 Baso % (Auto) 0.1 Neut # (Auto) 11.3 H Lymph # (Auto) 0.9 L [place] # (Auto) 0.6 Eos # (Auto) 0.0 Baso # (Auto) 0.0 Immature Gran % 0.4 Nucleated RBC % 0.0 Immature Gran # 0.05 Nucleated RBCs # 0.00 Sodium Potassium Chloride Carbon Dioxide Anion Gap BUN Creatinine GFR Calculation BUN/Creatinine Ratio Glucose POC Glucose Calculated Osmolality Calcium Total Bilirubin AST ALT Alkaline Phosphatase Total Creatine Kinase CK-MB (CK-2) Troponin I Total Protein Albumin Globulin Albumin/Globulin Ratio Quality Measures - VTE Contraindication to Pharmacological VTE Prophylaxis: Already on Theraputic Agent , No Prophylaxis Needed
[2016-10-13] MEDS: methylPREDNISolone SOD SUC 40 MG/1 ML VIAL IV SCH ×3 (06:37→23:54)
--- NOTE | 2016-10-13 06:48 | Pulmonology Progress Note ---
Pulmonary - PN: Subj Interval history: 56-year-old white man that has a severe cardiomyopathy. He came in with pulmonary edema is on the ventilator. He may have some right lower lobe consolidation also. His oxygenation is improved and he did CPAP fairly well. He has stable vital signs and is quite comfortable now. Exam (Progress Note) - Constitutional Vitals: Period Temp Pulse Resp BP Sys/Sims Pulse Ox Last 24 Hr 97.3 F-99.8 F 70-79 10-20 77-145/58-92 96-100 Exam: General appearance: normal weight, no acute distress, other (He looks comfortable on the ventilator. His vital signs are stable.) - Head Head exam: Present: normal inspection, normocephalic - Eye Eye exam: Present: EOMI. Absent: scleral icterus Pupils: Present: SHOBHA - ENT ENT exam: Present: normal exam, other (ET tube is in good position) - Neck Neck exam: Present: normal inspection. Absent: lymphadenopathy, thyromegaly - Respiratory Respiratory exam: Present: clear to auscultation bilaterally. He has good breath sounds and moving air well. Absent: wheezes - Cardiovascular Cardiovascular exam: Present: regular rate and rhythm, other (He has a midsternal scar). Absent: gallop, JVD, systolic murmur - GI/Abdominal GI/Abdominal exam: Present: normal bowel sounds, soft. Absent: organomegaly, tenderness - Extremities Exam Extremities exam: Absent: calf tenderness, edema - Neurological Exam Neurological exam: Present: other (He does arouse and respond appropriately.) - Psychiatric Psychiatric exam: Present: normal affect - Skin Skin exam: Present: warm, dry Results - Labs CBC & BMP: 10/13/16 04:43 10/13/16 04:42 Assessment and Plan (1) Ischemic cardiomyopathy Status: Acute Assessment and plan: The patient apparently has a severe ischemic cardiomyopathy with a very reduced ejection fraction. Now he presents with pulmonary edema. He has been diuresing fairly well and his weight is down 5 kg. Current Visit: Yes (2) Pulmonary edema Status: Acute Assessment and plan: He comes in with pulmonary edema and is on the ventilator. He is getting dopamine and getting diuretics. His oxygenation has improved. He is breathing comfortably so far. Current Visit: Yes Qualifiers: Chronicity: acute Qualified Code(s): J81.0 - Acute pulmonary edema (3) Respiratory failure Status: Acute Assessment and plan: He did require intubation for his respiratory failure. His oxygenation is better. He may have a component of COPD. He did diurese fairly well and his oxygenation has improved. Will recheck his chest x-ray and ABGs Current Visit: Yes Qualifiers: Chronicity: acute (4) CAD (coronary artery disease) Status: Chronic Assessment and plan: The patient has had previous bypass surgery and stents. Current Visit: Yes
[2016-10-13 07:20] LABS: Pt O2 Delivery Device Ventilator
[2016-10-13 07:22] LABS: ABG Base Excess 0.5 MMOL/L (-2.5-2.5); ABG HCO3 24.8 MMOL/L (20-26); ABG Oxygen Saturation 98.7 % (95-100); ABG TCO2 20.4 MMOL/L (23-27)
--- NOTE | 2016-10-13 07:42 | XRay Report ---
Referring Physician: Clay Tejeda MD Exam: XR chest 1V portable Date: October 13, 2016 at 6:39 AM Reason: Ventilator Comparison: Chest one view portable October 12, 2016 Findings: An endotracheal tube, feeding tube and cardiac pacing device are again in place. The cardiac silhouette is again enlarged, and the patient is status post sternotomy. There are scattered opacities within both lower lung zones. This is concerning for pneumonia, atelectasis and possibly mild pulmonary edema. No pneumothorax or definite pleural fluid is identified. The osseous structures appear stable. Impression: Interval improved aeration of the right lung. The study is otherwise similar to before. PROCEDURE INTERPRETED AT [facility] DEPARTMENT OF RADIOLOGY Final Report Signed by: Dr. Sacha Ray
[2016-10-13] MEDS ORDERED: PNEUMOCOCCAL VACCINE (23 VALENT) 0.5 ML VIAL IM ONE (09:00)
[2016-10-13] MEDS: INSULIN REGULAR 100 UNIT/ML SUBCUT SCH ×4 (09:31→21:18)
[2016-10-13] MEDS: ENOXAPARIN 40 MG/0.4 ML SYRINGE SUBCUT SCH (09:32)
[2016-10-13] MEDS: PANTOPRAZOLE 40 MG VIAL IV SCH (09:32)
[2016-10-13] MEDS: FUROSEMIDE 40 MG/4 ML VIAL IV SCH ×2 (09:33→16:38)
[2016-10-13] MEDS: EZETIMIBE 10 MG TABLET PO SCH (09:34)
[2016-10-13] MEDS: TAMSULOSIN 0.4 MG CAPSULE PO SCH (09:34)
[2016-10-13] MEDS: LEVOTHYROXINE 150 MCG TABLET PO SCH (09:34)
[2016-10-13] MEDS: ASPIRIN EC 325 MG TABLET PO SCH (09:36)
[2016-10-13] MEDS: AMIODARONE 200 MG TABLET PO SCH (09:37)
[2016-10-13] MEDS: LEVOFLOXACIN INJ 500 MG in PREMIX 1 EACH IV SCH (16:37)
[2016-10-13] MEDS: DOPamine 800 MG/250 ML PREMIX IV SCH (16:56)
[2016-10-13] MEDS: LORazepam 2 MG/1 ML VIAL IV PRN (22:33)
[2016-10-14] MEDS: PROPOFOL 1,000 MG/100 ML BOTTLE IV SCH (03:02)
[2016-10-14] MEDS: ALBUTEROL/IPRATROPIUM 3 ML NEB RESP TX SCH ×5 (03:17→19:41)
[2016-10-14 03:45] LABS: ABG Base Excess 2.1 MMOL/L (-2.5-2.5); ABG HCO3 24.9 MMOL/L (20-26); ABG Oxygen Saturation 99.1 % (95-100); ABG PCO2 33.9 MM HG (35-48); ABG PH 7.484 (7.35-7.45); ABG PO2 172.1 MM HG (80-95); ABG TCO2 25.9 MMOL/L (23-27); Pt O2 Delivery Device Ventilator
[2016-10-14 05:37] LABS: Basophils % 0.1 % (0.0-0.8); Hematocrit 48.3 VOL% (42.0-52.0); Hemoglobin 16.2 GM/DL (14.0-18.0); Immature Granulocytes % 0.5 %; Immature Granulocytes Absolute 0.09 #; Lymphocytes # 0.7 10*3/uL (1.4-4.0); Lymphocytes % 4.1 % (21.2-54.2); Mean Corpuscular HGB Conc 33.5 GM/DL (32-36); Mean Corpuscular Hemoglobin 31 PG (27-34); Mean Corpuscular Volume 91.7 FL (87-102); Mean Platelet Volume 10.7 FL (9.6-12.0); Monocytes % 5.5 % (1.7-12.7); Neutrophils # 15.8 10*3/uL (1.4-7.4); Neutrophils % 89.8 % (38.7-73.9); Platelet Count 203 T/CUMM (130-400); Red Blood Count 5.27 MC/CUMM (3.8-5.5); Red Cell Distribution Width 14.9 % (9.3-17.3); White Blood Count 17.6 T/CUMM (4-12)
[2016-10-14 06:00] LABS: Band Neutrophils 2 % (0-10); Hypochromasia 1+; Lymphocytes 4 % (20-55); Ovalocytes Slight; Platelet Estimate Normal; Segmented Neutrophils 88 % (50-85); Total Cells Counted 100
[2016-10-14 06:01] LABS: Microcytosis Slight
[2016-10-14 06:05] LABS: Calcium 8.3 MG/DL (8.5-10.1); Magnesium 2.7 MG/DL (1.8-2.4); Osmolality,Calculated 304.6 MOS/KG (273-304); Potassium 3.7 MMOL/L (3.5-5.1)
[2016-10-14 06:12] LABS: Albumin 3.7 G/DL (3.4-5.0); Bilirubin,Total 0.6 MG/DL (0.2-1.0); Calcium 8.3 MG/DL (8.5-10.1); Osmolality,Calculated 304.6 MOS/KG (273-304); Potassium 3.6 MMOL/L (3.5-5.1); Total Protein 6.9 G/DL (6.4-8.3)
--- NOTE | 2016-10-14 06:25 | Cardiology Progress Note ---
Cardiology - PN: Subj Interval history: Cardiology note 56-year-old man admitted with pulmonary edema He completed 7 hours of CPAP yesterday. Telemetry shows sinus rhythm in the 70s-80s Required additional diprovan for agitation last night Blood pressure 116/80 on 3 mics of dopamine Decreased breath sounds bibasilar rhonchi Regular rhythm no gallop Abdomen soft benign No leg edema Lab data today white count 17.6 hemoglobin 16.2 hematocrit 48.3 Sodium 146 potassium 3.7 chloride 108 CO2 28 BUN 40 creatinine 1.40 Glucose 113 magnesium 2.7 Impression Ischemic cardiomyopathy EF 15-20% with grade 3 diastolic dysfunction by recent echo Pulmonary edema Status post defibrillator Active smoker COPD Plan Wean dopamine IV Lasix 80 mg twice daily Solu-Medrol and Levaquin BMP in a.m. CPAP trials Exam (Progress Note) - Constitutional Vitals: Period Temp Pulse Resp BP Sys/Sims Pulse Ox Last 24 Hr 96.8 F-98.3 F 71-86 8-30 75-157/32-99 94-100 Result/EKG - Labs CBC & BMP: 10/14/16 05:12 10/14/16 05:13 Labs: Laboratory Results - last 24 hr 10/13/16 10/13/16 10/13/16 07:12 07:52 11:46 WBC RBC Hgb Hct MCV MCH MCHC RDW Plt Count MPV Neut % (Auto) Lymph % (Auto) [place] % (Auto) Eos % (Auto) Baso % (Auto) Neut # (Auto) Lymph # (Auto) [place] # (Auto) Eos # (Auto) Baso # (Auto) Total Counted Immature Gran % Nucleated RBC % Immature Gran # Segmented Neutrophils Band Neutrophils Lymphocytes Monocytes Nucleated RBCs # Platelet Estimate Hypochromasia Microcytosis Ovalocytes Morphology Comment ABG pH 7.420 ABG pCO2 38.0 ABG pO2 127.0 H ABG HCO3 24.8 ABG Total CO2 20.4 L ABG O2 Saturation 98.7 ABG Base Excess 0.5 FiO2 40.00 Sodium Potassium Chloride Carbon Dioxide Anion Gap BUN Creatinine GFR Calculation BUN/Creatinine Ratio Glucose POC Glucose 114 H 117 H Calculated Osmolality Calcium Magnesium Total Bilirubin AST ALT Alkaline Phosphatase Total Protein Albumin Globulin Albumin/Globulin Ratio 10/13/16 10/13/16 10/14/16 16:09 19:58 03:01 WBC RBC Hgb Hct MCV MCH MCHC RDW Plt Count MPV Neut % (Auto) Lymph % (Auto) [place] % (Auto) Eos % (Auto) Baso % (Auto) Neut # (Auto) Lymph # (Auto) [place] # (Auto) Eos # (Auto) Baso # (Auto) Total Counted Immature Gran % Nucleated RBC % Immature Gran # Segmented Neutrophils Band Neutrophils Lymphocytes Monocytes Nucleated RBCs # Platelet Estimate Hypochromasia Microcytosis Ovalocytes Morphology Comment ABG pH ABG pCO2 ABG pO2 ABG HCO3 ABG Total CO2 ABG O2 Saturation ABG Base Excess FiO2 Sodium Potassium Chloride Carbon Dioxide Anion Gap BUN Creatinine GFR Calculation BUN/Creatinine Ratio Glucose POC Glucose 119 H 100 113 H Calculated Osmolality Calcium Magnesium Total Bilirubin AST ALT Alkaline Phosphatase Total Protein Albumin Globulin Albumin/Globulin Ratio 10/14/16 10/14/16 10/14/16 03:29 05:12 05:12 WBC 17.6 H D RBC 5.27 Hgb 16.2 Hct 48.3 MCV 91.7 MCH 31 MCHC 33.5 RDW 14.9 Plt Count 203 MPV 10.7 Neut % (Auto) 89.8 H Lymph % (Auto) 4.1 L [place] % (Auto) 5.5 Eos % (Auto) 0.0 Baso % (Auto) 0.1 Neut # (Auto) 15.8 H Lymph # (Auto) 0.7 L [place] # (Auto) 1.0 H Eos # (Auto) 0.0 Baso # (Auto) 0.0 Total Counted 100 Immature Gran % 0.5 Nucleated RBC % 0.0 Immature Gran # 0.09 Segmented Neutrophils 88 H Band Neutrophils 2 Lymphocytes 4 L Monocytes 6 Nucleated RBCs # 0.00 Platelet Estimate Normal Hypochromasia 1+ Microcytosis Slight Ovalocytes Slight Morphology Comment ABG pH 7.484 H ABG pCO2 33.9 L ABG pO2 172.1 H ABG HCO3 24.9 ABG Total CO2 25.9 ABG O2 Saturation 99.1 ABG Base Excess 2.1 FiO2 40.00 Sodium 146 H Potassium 3.7 Chloride 108 H Carbon Dioxide 28 Anion Gap 13.7 BUN 48 H Creatinine 1.40 H GFR Calculation 67 BUN/Creatinine Ratio 34.00 H Glucose 128 H POC Glucose Calculated Osmolality 304.6 H Calcium 8.3 L Magnesium 2.7 H Total Bilirubin AST ALT Alkaline Phosphatase Total Protein Albumin Globulin Albumin/Globulin Ratio 10/14/16 05:13 WBC RBC Hgb Hct MCV MCH MCHC RDW Plt Count MPV Neut % (Auto) Lymph % (Auto) [place] % (Auto) Eos % (Auto) Baso % (Auto) Neut # (Auto) Lymph # (Auto) [place] # (Auto) Eos # (Auto) Baso # (Auto) Total Counted Immature Gran % Nucleated RBC % Immature Gran # Segmented Neutrophils Band Neutrophils Lymphocytes Monocytes Nucleated RBCs # Platelet Estimate Hypochromasia Microcytosis Ovalocytes Morphology Comment ABG pH ABG pCO2 ABG pO2 ABG HCO3 ABG Total CO2 ABG O2 Saturation ABG Base Excess FiO2 Sodium 146 H Potassium 3.6 Chloride 108 H Carbon Dioxide 29 Anion Gap 12.6 BUN 50 H Creatinine 1.50 H GFR Calculation 62 BUN/Creatinine Ratio 33.00 H Glucose 133 H POC Glucose Calculated Osmolality 304.6 H Calcium 8.3 L Magnesium Total Bilirubin 0.60 AST 23 ALT 16 Alkaline Phosphatase 59 Total Protein 6.9 Albumin 3.7 Globulin 3.2 Albumin/Globulin Ratio 1.1 Quality Measures - VTE Contraindication to Pharmacological VTE Prophylaxis: Already on Theraputic Agent , No Prophylaxis Needed
--- NOTE | 2016-10-14 06:31 | XRay Report ---
Referring Physician: Clay Tejeda MD Exam: XR chest 1V portable Date: October 14, 2016 at 3:00 AM Reason: Ventilator Comparison: Chest one view portable October 13, 2016 Findings: An endotracheal tube, feeding tube and cardiac pacing device are again in place. The cardiac silhouette is again enlarged, and the patient is status post sternotomy. There are scattered opacities within both lower lung zones. This likely represents atelectasis and improving pneumonia. No pneumothorax or pleural effusion is identified. No acute osseous process is seen. Impression: There are again mild scattered opacities within both lower lung zones, mainly on the right. This has improved and likely represents atelectasis and improving pneumonia. PROCEDURE INTERPRETED AT [facility] DEPARTMENT OF RADIOLOGY Final Report Signed by: Dr. Sacha Ray
--- NOTE | 2016-10-14 07:13 | Pulmonology Progress Note ---
Pulmonary - PN: Subj Interval history: 56-year-old white man that has a severe cardiomyopathy. He came in with pulmonary edema is on the ventilator. He has done well over the last few days on the ventilator. His chest x-ray is cleared up nicely. He responds fairly well and got agitated last night. He did require some extra sedation. He does respond fairly well and is moving around better. Will plan to extubate him today. Exam (Progress Note) - Constitutional Vitals: Period Temp Pulse Resp BP Sys/Sims Pulse Ox Last 24 Hr 96.8 F-98.3 F 71-86 8-30 75-157/32-99 94-100 Exam: General appearance: normal weight, no acute distress, other (He looks comfortable on the ventilator. His vital signs are stable. He responds easily. ) - Head Head exam: Present: normal inspection, normocephalic - Eye Eye exam: Present: EOMI. Absent: scleral icterus Pupils: Present: SHOBHA - ENT ENT exam: Present: normal exam, other (ET tube is in good position) - Neck Neck exam: Present: normal inspection. Absent: lymphadenopathy, thyromegaly - Respiratory Respiratory exam: Present: His lungs have good breath sounds bilaterally and sound quite clear without any rales. - Cardiovascular Cardiovascular exam: Present: regular rate and rhythm, other (He has a midsternal scar). Absent: gallop, JVD, systolic murmur - GI/Abdominal GI/Abdominal exam: Present: normal bowel sounds, soft. Absent: organomegaly, tenderness - Extremities Exam Extremities exam: Absent: calf tenderness, edema - Neurological Exam Neurological exam: Present: other (He does arouse and respond appropriately.) - Psychiatric Psychiatric exam: Present: normal affect - Skin Skin exam: Present: warm, dry Results - Labs CBC & BMP: 10/14/16 05:12 10/14/16 05:13 Labs: PO2 is 170 with a PCO2 of 33 and a pH of 7.48 - Diagnostic Findings Procedure: Chest x-ray: image reviewed by me, report reviewed by me (Chest x- ray is clear now.) Assessment and Plan (1) Ischemic cardiomyopathy Status: Acute Assessment and plan: The patient apparently has a severe ischemic cardiomyopathy with a very reduced ejection fraction. He was in pulmonary edema but this is resolved. We will extubate him today. Current Visit: Yes (2) Pulmonary edema Status: Acute Assessment and plan: He comes in with pulmonary edema and is on the ventilator. He is getting dopamine and getting diuretics. His oxygenation has improved. His chest x-ray is now clear. He should do well off the ventilator. Current Visit: Yes Qualifiers: Chronicity: acute Qualified Code(s): J81.0 - Acute pulmonary edema (3) Respiratory failure Status: Acute Assessment and plan: He did require intubation for his respiratory failure. His oxygenation is better. He may have a component of COPD. He did diurese fairly well and his oxygenation has improved. His chest x-ray is now clear and he is doing well. Will extubate this morning. Current Visit: Yes Qualifiers: Chronicity: acute (4) CAD (coronary artery disease) Status: Chronic Assessment and plan: The patient has had previous bypass surgery and stents. Current Visit: Yes
[2016-10-14] MEDS: LORazepam 2 MG/1 ML VIAL IV PRN (08:01)
[2016-10-14] MEDS: MORPHINE 2 MG/1 ML SYRINGE IV PRN ×2 (08:34→12:02)
[2016-10-14] MEDS: FUROSEMIDE 40 MG/4 ML VIAL IV SCH ×3 (08:35→15:09)
[2016-10-14] MEDS: methylPREDNISolone SOD SUC 40 MG/1 ML VIAL IV SCH ×3 (08:38→23:58)
[2016-10-14] MEDS: ENOXAPARIN 40 MG/0.4 ML SYRINGE SUBCUT SCH (08:38)
[2016-10-14] MEDS: PANTOPRAZOLE 40 MG VIAL IV SCH (08:39)
[2016-10-14] MEDS ORDERED: HALOPERIDOL 5 MG/ML AMP IV ONE (08:58)
[2016-10-14 09:44] LABS: ABG Base Excess -0.8 MMOL/L (-2.5-2.5); ABG HCO3 23.7 MMOL/L (20-26); ABG Oxygen Saturation 99.5 % (95-100); ABG TCO2 13.2 MMOL/L (23-27); Pt O2 Delivery Device Venturi Mask
[2016-10-14 09:47] LABS: ABG PCO2 14.9 MM HG (35-48); ABG PH 7.648 (7.35-7.45)
[2016-10-14] MEDS: DEXMEDETOMIDINE 200 MCG in SODIUM CHLORIDE 0.9% 48 ML IV SCH ×3 (09:52→15:37)
[2016-10-14] MEDS: TAMSULOSIN 0.4 MG CAPSULE PO SCH (09:53)
[2016-10-14] MEDS: ASPIRIN EC 325 MG TABLET PO SCH (09:53)
[2016-10-14] MEDS: AMIODARONE 200 MG TABLET PO SCH (09:53)
[2016-10-14] MEDS: EZETIMIBE 10 MG TABLET PO SCH (09:54)
[2016-10-14] MEDS: LEVOTHYROXINE 150 MCG TABLET PO SCH (09:54)
[2016-10-14] MEDS: INSULIN REGULAR 100 UNIT/ML SUBCUT SCH ×4 (09:55→21:34)
[2016-10-14] MEDS: DOPamine 800 MG/250 ML PREMIX IV SCH (15:07)
[2016-10-14] MEDS: LEVOFLOXACIN INJ 500 MG in PREMIX 1 EACH IV SCH (16:34)
[2016-10-14] MEDS: SODIUM CHLORIDE 0.9% IV SCH (19:38)
[2016-10-14] MEDS: DEXMEDETOMIDINE IV SCH (19:38)
[2016-10-15] MEDS: ALBUTEROL/IPRATROPIUM 3 ML NEB RESP TX SCH ×7 (01:01→23:17)
[2016-10-15] MEDS: SODIUM CHLORIDE 0.9% IV SCH ×2 (04:26→21:02)
[2016-10-15] MEDS: DEXMEDETOMIDINE IV SCH ×2 (04:26→21:02)
[2016-10-15 06:08] LABS: Basophils % 0.1 % (0.0-0.8); Hematocrit 50.1 VOL% (42.0-52.0); Hemoglobin 16.4 GM/DL (14.0-18.0); Immature Granulocytes % 0.7 %; Lymphocytes # 0.9 10*3/uL (1.4-4.0); Lymphocytes % 6.6 % (21.2-54.2); Mean Corpuscular HGB Conc 32.7 GM/DL (32-36); Mean Corpuscular Hemoglobin 31 PG (27-34); Mean Platelet Volume 10.4 FL (9.6-12.0); Monocytes # 0.6 10*3/uL (0.11-0.8); Monocytes % 4.2 % (1.7-12.7); Neutrophils # 12.3 10*3/uL (1.4-7.4); Neutrophils % 88.4 % (38.7-73.9); Platelet Count 176 T/CUMM (130-400); Red Blood Count 5.33 MC/CUMM (3.8-5.5); Red Cell Distribution Width 14.7 % (9.3-17.3); White Blood Count 13.9 T/CUMM (4-12)
--- NOTE | 2016-10-15 06:38 | Cardiology Progress Note ---
Cardiology - PN: Subj Interval history: Cardiology note 56-year-old man with ischemic cardia myopathy transferred from [facility] with pulmonary edema. Patient was extubated yesterday. Post extubation he was combative and agitated and needed Precedex Today he is edgy but his behavior is much better. Telemetry shows sinus rhythm occasional PVCs, one run of nonsustained VT last night asymptomatic Blood pressure 136/80 O2 sat is 90% on 2 L nasal cannula Regular rhythm no gallop Decreased breath sounds basilar rhonchi abdomen soft benign No leg edema Lab data today White count 13.9 Hemoglobin 16.4 hematocrit 50.1 BMP is still pending Impression Ischemic cardiomyopathy EF 15-20% Pulmonary edema Status post defibrillator Active smoker COPD Plan BMP pending Continue steroids and nebs Continue Lasix 80 mg twice daily The patient has been here since October 11 and has not been visited by his . Exam (Progress Note) - Constitutional Vitals: Period Temp Pulse Resp BP Sys/Sims Pulse Ox Last 24 Hr 97.6 F-98.9 F 70-100 14-44 110-162/68-147 92-100 Result/EKG - Labs CBC & BMP: 10/15/16 05:53 10/14/16 05:13 Labs: Laboratory Results - last 24 hr 10/14/16 10/14/16 10/14/16 07:11 09:37 11:14 WBC RBC Hgb Hct MCV MCH MCHC RDW Plt Count MPV Neut % (Auto) Lymph % (Auto) [place] % (Auto) Eos % (Auto) Baso % (Auto) Neut # (Auto) Lymph # (Auto) [place] # (Auto) Eos # (Auto) Baso # (Auto) Immature Gran % Nucleated RBC % Immature Gran # Nucleated RBCs # ABG pH 7.648 H* ABG pCO2 14.9 L* ABG pO2 136.0 H ABG HCO3 23.7 ABG Total CO2 13.2 L ABG O2 Saturation 99.5 ABG Base Excess -0.8 FiO2 40.00 POC Glucose 100 119 H 10/14/16 10/14/16 10/15/16 16:30 21:02 05:53 WBC 13.9 H RBC 5.33 Hgb 16.4 Hct 50.1 MCV 94.0 MCH 31 MCHC 32.7 RDW 14.7 Plt Count 176 MPV 10.4 Neut % (Auto) 88.4 H Lymph % (Auto) 6.6 L [place] % (Auto) 4.2 Eos % (Auto) 0.0 Baso % (Auto) 0.1 Neut # (Auto) 12.3 H Lymph # (Auto) 0.9 L [place] # (Auto) 0.6 Eos # (Auto) 0.0 Baso # (Auto) 0.0 Immature Gran % 0.7 Nucleated RBC % 0.0 Immature Gran # 0.10 Nucleated RBCs # 0.00 ABG pH ABG pCO2 ABG pO2 ABG HCO3 ABG Total CO2 ABG O2 Saturation ABG Base Excess FiO2 POC Glucose 128 H 112 H Quality Measures - VTE Contraindication to Pharmacological VTE Prophylaxis: Already on Theraputic Agent , No Prophylaxis Needed
[2016-10-15] MEDS: methylPREDNISolone SOD SUC 40 MG/1 ML VIAL IV SCH ×3 (06:44→21:53)
[2016-10-15 06:46] LABS: Albumin 3.7 G/DL (3.4-5.0); Calcium 8.5 MG/DL (8.5-10.1); Magnesium 3.3 MG/DL (1.8-2.4); Osmolality,Calculated 300.8 MOS/KG (273-304); Potassium 3.5 MMOL/L (3.5-5.1)
--- NOTE | 2016-10-15 07:18 | XRay Report ---
Referring Physician: Clay Tejeda MD Exam: XR chest 1V portable Date: October 15, 2016 at 3:04 AM Reason: Ventilator Comparison: Chest one view portable October 14, 2016 Findings: The previously seen endotracheal tube and feeding tube are no longer in place. A cardiac pacing device is again present. The cardiac silhouette is again enlarged, and the patient is status post sternotomy. There are scattered opacities within both lower lung zones, left greater than right. This likely represents atelectasis and possibly pneumonia. No pneumothorax is identified, but there is likely mild left pleural fluid. The osseous structures appear stable. Impression: 1. The previously seen endotracheal tube and feeding tube have been removed. 2. Increased opacification of the left lower lung zone and persistent mild scattered opacities within the right lower lung zone. This likely represents atelectasis and possibly pneumonia. There could also be mild left pleural fluid. PROCEDURE INTERPRETED AT [facility] DEPARTMENT OF RADIOLOGY Final Report Signed by: Dr. Sacha Ray
--- NOTE | 2016-10-15 07:42 | Pulmonology Progress Note ---
Pulmonary - PN: Subj Interval history: 56-year-old white man that has a severe cardiomyopathy. He came in with pulmonary edema and was ventilated for several days. His chest x-ray cleared up nicely and he was extubated yesterday. He had a lot of agitation and confusion and required sedatives. He had a much better night and now he is much improved. He is talking appropriately and is very calm now. He says he is not having any chest pain or shortness of breath. His vital signs have been stable. His oxygenation has been very good. His chest x-ray still clear. The patient has a cardiomyopathy but appears stable. He can move to telemetry when okay with cardiology. Exam (Progress Note) - Constitutional Vitals: Period Temp Pulse Resp BP Sys/Sims Pulse Ox Last 24 Hr 97.6 F-98.9 F 70-100 14-44 110-162/68-147 92-100 Exam: General appearance: normal weight, no acute distress, other (He is alert and comfortable now and in no distress.) - Head Head exam: Present: normal inspection, normocephalic - Eye Eye exam: Present: EOMI. Absent: scleral icterus Pupils: Present: SHOBHA - ENT ENT exam: Present: normal exam - Neck Neck exam: Present: normal inspection. Absent: lymphadenopathy, thyromegaly - Respiratory Respiratory exam: Present: His lungs have good breath sounds bilaterally and his lungs sound quite clear today. - Cardiovascular Cardiovascular exam: Present: regular rate and rhythm, other (He has a midsternal scar). Absent: gallop, JVD, systolic murmur - GI/Abdominal GI/Abdominal exam: Present: normal bowel sounds, soft. Absent: organomegaly, tenderness - Extremities Exam Extremities exam: Absent: calf tenderness, edema - Neurological Exam Neurological exam: Present: other (He is talking appropriately and moving around now his agitation is much better.) - Psychiatric Psychiatric exam: Present: normal affect - Skin Skin exam: Present: warm, dry Results - Labs CBC & BMP: 10/15/16 05:53 10/15/16 05:53 - Diagnostic Findings Procedure: Chest x-ray: image reviewed by me, report reviewed by me (Chest x- ray shows mild cardiomegaly with no CHF now.) Assessment and Plan (1) Ischemic cardiomyopathy Status: Acute Assessment and plan: The patient apparently has a severe ischemic cardiomyopathy with a very reduced ejection fraction. He was in pulmonary edema but this is resolved. He is breathing comfortably off the ventilator. Current Visit: Yes (2) Pulmonary edema Status: Acute Assessment and plan: He comes in with pulmonary edema and was ventilated for several days. He was extubated yesterday and is breathing okay. He had a lot of agitation that has resolved. He looks quite comfortable now. Current Visit: Yes Qualifiers: Chronicity: acute Qualified Code(s): J81.0 - Acute pulmonary edema (3) Respiratory failure Status: Acute Assessment and plan: He did require intubation for his respiratory failure. His oxygenation is better. He may have a component of COPD. He did diurese fairly well and his oxygenation has improved. His chest x-ray is now clear and he is doing well. He did not have any trouble coming off the ventilator. His chest x-ray has remained fairly clear. He says he is not short of breath now and is quite comfortable. He is very stable from a pulmonary standpoint. Current Visit: Yes Qualifiers: Chronicity: acute (4) CAD (coronary artery disease) Status: Chronic Assessment and plan: The patient has had previous bypass surgery and stents. Current Visit: Yes
[2016-10-15] MEDS: FUROSEMIDE 40 MG/4 ML VIAL IV SCH ×2 (09:00→15:49)
[2016-10-15] MEDS: TAMSULOSIN 0.4 MG CAPSULE PO SCH (09:01)
[2016-10-15] MEDS: LEVOTHYROXINE 150 MCG TABLET PO SCH (09:01)
[2016-10-15] MEDS: ASPIRIN EC 325 MG TABLET PO SCH (09:01)
[2016-10-15] MEDS: EZETIMIBE 10 MG TABLET PO SCH (09:01)
[2016-10-15] MEDS: INSULIN REGULAR 100 UNIT/ML SUBCUT SCH ×4 (09:01→21:03)
[2016-10-15] MEDS: AMIODARONE 200 MG TABLET PO SCH (09:01)
[2016-10-15] MEDS: POTASSIUM CHLORIDE 20 MEQ TABLET PO SCH (09:02)
[2016-10-15] MEDS: ENOXAPARIN 40 MG/0.4 ML SYRINGE SUBCUT SCH (09:10)
[2016-10-15] MEDS: PANTOPRAZOLE 40 MG VIAL IV SCH (09:10)
[2016-10-15] MEDS: DOPamine 800 MG/250 ML PREMIX IV SCH (15:09)
[2016-10-15] MEDS: LEVOFLOXACIN INJ 500 MG in PREMIX 1 EACH IV SCH (16:53)
[2016-10-16] MEDS: ALBUTEROL/IPRATROPIUM 3 ML NEB RESP TX SCH ×6 (02:36→23:46)
[2016-10-16 04:33] LABS: Calcium 8.4 MG/DL (8.5-10.1); Magnesium 2.9 MG/DL (1.8-2.4); Osmolality,Calculated 287.5 MOS/KG (273-304); Potassium 3.6 MMOL/L (3.5-5.1)
[2016-10-16 04:35] LABS: Calcium 8.4 MG/DL (8.5-10.1); Osmolality,Calculated 289.4 MOS/KG (273-304); Potassium 3.7 MMOL/L (3.5-5.1)
--- NOTE | 2016-10-16 06:36 | Cardiology Progress Note ---
Cardiology - PN: Subj Interval history: Cardiology note 56-year-old man with ischemic cardia myopathy transferred from [facility] with pulmonary edema Patient is extubated and doing much better. Telemetry shows sinus rhythm in the 70s-80 range rare PVC only O2 sat 95% on room air Blood pressure 138/80 Regular rhythm distant heart tones no murmur Decreased breath sounds few basilar rhonchi no wheezing Abdomen soft benign No leg edema Lab data today Sodium 140 potassium 3.7 chloride 101 CO2 29 BUN 41 creatinine 1.20 Glucose 106 magnesium 2.9 Impression Ischemic cardia myopathy EF 15-20% Status post pulmonary edema Status post defibrillator COPD Active smoker Plan Transfer to telemetry Continue Lasix 80 mg IV twice daily Restart carvedilol 3.125 mg twice daily BMP in a.m. Steroids nebs Exam (Progress Note) - Constitutional Vitals: Period Temp Pulse Resp BP Sys/Sims Pulse Ox Last 24 Hr 97 F-98.2 F 63-80 8-25 108-153/39-92 91-100 Result/EKG - Labs CBC & BMP: 10/15/16 05:53 10/16/16 03:15 Labs: Laboratory Results - last 24 hr 10/15/16 10/15/16 10/15/16 05:53 07:38 11:16 Sodium 144 Potassium 3.5 Chloride 104 Carbon Dioxide 29 Anion Gap 14.5 BUN 46 H Creatinine 1.30 GFR Calculation 72 BUN/Creatinine Ratio 35.00 H Glucose 156 H POC Glucose 142 H 103 Calculated Osmolality 300.8 Calcium 8.5 Magnesium 3.3 H Total Bilirubin 1.00 AST 21 ALT 17 Alkaline Phosphatase 61 Total Protein 7.0 Albumin 3.7 Globulin 3.3 Albumin/Globulin Ratio 1.1 10/15/16 10/15/16 10/16/16 15:44 20:22 03:15 Sodium 139 Potassium 3.6 Chloride 101 Carbon Dioxide 29 Anion Gap 12.6 BUN 41 H Creatinine 1.20 GFR Calculation 80 BUN/Creatinine Ratio 34.00 H Glucose 115 H POC Glucose 108 H 106 Calculated Osmolality 287.5 Calcium 8.4 L Magnesium 2.9 H Total Bilirubin AST ALT Alkaline Phosphatase Total Protein Albumin Globulin Albumin/Globulin Ratio 10/16/16 03:15 Sodium 140 Potassium 3.7 Chloride 101 Carbon Dioxide 29 Anion Gap 13.7 BUN 41 H Creatinine 1.20 GFR Calculation 80 BUN/Creatinine Ratio 34.00 H Glucose 114 H POC Glucose Calculated Osmolality 289.4 Calcium 8.4 L Magnesium Total Bilirubin AST ALT Alkaline Phosphatase Total Protein Albumin Globulin Albumin/Globulin Ratio Quality Measures - VTE Contraindication to Pharmacological VTE Prophylaxis: Already on Theraputic Agent , No Prophylaxis Needed
[2016-10-16] MEDS: INSULIN REGULAR 100 UNIT/ML SUBCUT SCH (07:42)
[2016-10-16] MEDS: PANTOPRAZOLE 40 MG VIAL IV SCH (08:12)
[2016-10-16] MEDS: TAMSULOSIN 0.4 MG CAPSULE PO SCH (08:12)
[2016-10-16] MEDS: LEVOTHYROXINE 150 MCG TABLET PO SCH (08:12)
[2016-10-16] MEDS: EZETIMIBE 10 MG TABLET PO SCH (08:12)
[2016-10-16] MEDS: CARVEDILOL 3.125 MG TABLET PO SCH ×2 (08:12→21:32)
[2016-10-16] MEDS: ASPIRIN EC 325 MG TABLET PO SCH (08:12)
[2016-10-16] MEDS: AMIODARONE 200 MG TABLET PO SCH (08:12)
[2016-10-16] MEDS: methylPREDNISolone SOD SUC 40 MG/1 ML VIAL IV SCH ×2 (08:13→21:33)
[2016-10-16] MEDS: FUROSEMIDE 40 MG/4 ML VIAL IV SCH ×2 (08:13→16:33)
[2016-10-16] MEDS: ENOXAPARIN 40 MG/0.4 ML SYRINGE SUBCUT SCH (08:15)
[2016-10-16] MEDS: POTASSIUM CHLORIDE 20 MEQ TABLET PO SCH (08:15)
[2016-10-16] MEDS: LEVOFLOXACIN INJ 500 MG in PREMIX 1 EACH IV SCH (16:31)
[2016-10-17] MEDS: ALBUTEROL/IPRATROPIUM 3 ML NEB RESP TX SCH ×6 (04:21→23:53)
[2016-10-17 07:47] LABS: Calcium 8.9 MG/DL (8.5-10.1); Magnesium 2.8 MG/DL (1.8-2.4); Osmolality,Calculated 283.7 MOS/KG (273-304); Potassium 5.2 MMOL/L (3.5-5.1)
--- NOTE | 2016-10-17 08:12 | Cardiology Progress Note ---
Cardiology - PN: Subj Interval history: Cardiology note 56-year-old man with ischemic cardia myopathy transferred from [facility] with pulmonary edema. Telemetry shows sinus rhythm with rare PVCs Blood pressure 136/80 O2 sat 95% on 2 L Regular rhythm no murmur Decreased breath sounds with basilar rhonchi no wheezing Abdomen soft No leg edema Lab data today Sodium 138 potassium 5.2 chloride 99 CO2 34 BUN 39 creatinine 1.40 Glucose 100 magnesium 2.8 Impression Pulmonary edema Ischemic cardiomyopathy EF 15-20% Status post defibrillator COPD Active smoker Plan DC IV Lasix and switch to p.o. Lasix 80 mg twice daily BMP in a.m. Increase carvedilol 6.25 mg twice daily Restart Lotensin 5 mg daily Steroids nebs Exam (Progress Note) - Constitutional Vitals: Period Temp Pulse Resp BP Sys/Sims Pulse Ox Last 24 Hr 97.1 F-98.0 F 72-85 16-20 122-140/78-94 94-100 Result/EKG - Labs CBC & BMP: 10/15/16 05:53 10/17/16 03:56 Labs: Laboratory Results - last 24 hr 10/16/16 10/16/16 10/16/16 12:04 16:33 20:05 Sodium Potassium Chloride Carbon Dioxide Anion Gap BUN Creatinine GFR Calculation BUN/Creatinine Ratio Glucose POC Glucose 89 94 94 Calculated Osmolality Calcium Magnesium 10/17/16 10/17/16 03:56 07:03 Sodium 138 Potassium 5.2 H Chloride 99 Carbon Dioxide 34 H Anion Gap 10.2 BUN 39 H Creatinine 1.40 H GFR Calculation 66 BUN/Creatinine Ratio 27.00 H Glucose 100 POC Glucose 88 Calculated Osmolality 283.7 Calcium 8.9 Magnesium 2.8 H Quality Measures - VTE Contraindication to Pharmacological VTE Prophylaxis: Already on Theraputic Agent , No Prophylaxis Needed
[2016-10-17] MEDS: LEVOTHYROXINE 150 MCG TABLET PO SCH (10:33)
[2016-10-17] MEDS: CARVEDILOL 6.25 MG TABLET PO SCH ×2 (10:34→22:00)
[2016-10-17] MEDS: BENAZEPRIL 5 MG TABLET PO SCH (10:34)
[2016-10-17] MEDS: EZETIMIBE 10 MG TABLET PO SCH (10:34)
[2016-10-17] MEDS: AMIODARONE 200 MG TABLET PO SCH (10:35)
[2016-10-17] MEDS: ASPIRIN EC 325 MG TABLET PO SCH (10:35)
[2016-10-17] MEDS: TAMSULOSIN 0.4 MG CAPSULE PO SCH (10:35)
[2016-10-17] MEDS: methylPREDNISolone SOD SUC 40 MG/1 ML VIAL IV SCH ×2 (10:36→22:00)
[2016-10-17] MEDS: ENOXAPARIN 40 MG/0.4 ML SYRINGE SUBCUT SCH (10:40)
[2016-10-17] MEDS: PANTOPRAZOLE 40 MG VIAL IV SCH (10:40)
[2016-10-17] MEDS: FUROSEMIDE 80 MG TABLET PO SCH (17:15)
[2016-10-17] MEDS: LEVOFLOXACIN INJ 500 MG in PREMIX 1 EACH IV SCH (17:20)
[2016-10-18] MEDS: ALBUTEROL/IPRATROPIUM 3 ML NEB RESP TX SCH ×4 (03:09→15:51)
[2016-10-18 04:52] LABS: Calcium 8.3 MG/DL (8.5-10.1); Osmolality,Calculated 283.7 MOS/KG (273-304); Potassium 4.5 MMOL/L (3.5-5.1)
[2016-10-18 04:53] LABS: Calcium 8.4 MG/DL (8.5-10.1); Magnesium 2.6 MG/DL (1.8-2.4); Osmolality,Calculated 283.7 MOS/KG (273-304); Potassium 4.5 MMOL/L (3.5-5.1)
[2016-10-18] MEDS ORDERED: PANTOPRAZOLE 40 MG TABLET PO SCH (09:00)
--- NOTE | 2016-10-18 10:13 | Pulmonology Progress Note ---
Pulmonary - PN: Subj Interval history: 56-year-old white man that has a severe cardiomyopathy. He came in with pulmonary edema and was ventilated for several days. His chest x-ray cleared up nicely and he was extubated yesterday. He had a lot of agitation and confusion and required sedatives. Minimally he clear that well and has had a good weekend. He is not having any shortness of breath or chest pain now. He apparently is doing well and can go home from a pulmonary standpoint. Exam (Progress Note) - Constitutional Vitals: Period Temp Pulse Resp BP Sys/Sims Pulse Ox Last 24 Hr 97 F-99.5 F 67-79 15-20 119-151/68-89 96-99 Exam: General appearance: normal weight, no acute distress, other (He is alert and sitting up in bed and looks quite comfortable.) - Head Head exam: Present: normal inspection, normocephalic - Eye Eye exam: Present: EOMI. Absent: scleral icterus Pupils: Present: SHOBHA - ENT ENT exam: Present: normal exam - Neck Neck exam: Present: normal inspection. Absent: lymphadenopathy, thyromegaly - Respiratory Respiratory exam: Present: His lungs have good breath sounds bilaterally and his lungs sound quite clear today. He is moving air well without any wheezing - Cardiovascular Cardiovascular exam: Present: regular rate and rhythm, other (He has a midsternal scar). Absent: gallop, JVD, systolic murmur - GI/Abdominal GI/Abdominal exam: Present: normal bowel sounds, soft. Absent: organomegaly, tenderness - Extremities Exam Extremities exam: Absent: calf tenderness, edema - Neurological Exam Neurological exam: Present: other (He is alert and calm and looks comfortable.) - Psychiatric Psychiatric exam: Present: normal affect - Skin Skin exam: Present: warm, dry Results - Labs CBC & BMP: 10/15/16 05:53 10/18/16 03:29 Assessment and Plan (1) Ischemic cardiomyopathy Status: Acute Assessment and plan: The patient apparently has a severe ischemic cardiomyopathy with a very reduced ejection fraction. He was in pulmonary edema but this is resolved. His breathing is much better and is quite comfortable now. He does not appear to be in heart failure. Current Visit: Yes (2) Pulmonary edema Status: Acute Assessment and plan: He comes in with pulmonary edema and was ventilated for several days. He is clear nicely and his breathing is doing much better now . Current Visit: Yes Qualifiers: Chronicity: acute Qualified Code(s): J81.0 - Acute pulmonary edema (3) Respiratory failure Status: Acute Assessment and plan: He did require intubation for his respiratory failure. His oxygenation is better. He may have a component of COPD. He did diurese fairly well and his oxygenation has improved. His chest x-ray is now clear and he is doing well. He is ambulating around the room and not short of breath now. Overall he is stable and can go home from a pulmonary standpoint Current Visit: Yes Qualifiers: Chronicity: acute (4) CAD (coronary artery disease) Status: Chronic Assessment and plan: The patient has had previous bypass surgery and stents. Current Visit: Yes
[2016-10-18] MEDS: CARVEDILOL 6.25 MG TABLET PO SCH (11:09)
[2016-10-18] MEDS: BENAZEPRIL 5 MG TABLET PO SCH (11:09)
[2016-10-18] MEDS: LEVOTHYROXINE 150 MCG TABLET PO SCH (11:10)
[2016-10-18] MEDS: ASPIRIN EC 325 MG TABLET PO SCH (11:10)
[2016-10-18] MEDS: FUROSEMIDE 80 MG TABLET PO SCH (11:10)
[2016-10-18] MEDS: TAMSULOSIN 0.4 MG CAPSULE PO SCH (11:10)
[2016-10-18] MEDS: EZETIMIBE 10 MG TABLET PO SCH (11:11)
[2016-10-18] MEDS: methylPREDNISolone SOD SUC 40 MG/1 ML VIAL IV SCH (11:11)
[2016-10-18] MEDS: AMIODARONE 200 MG TABLET PO SCH (11:11)
[2016-10-18 11:49] VITALS: BP 136/93
--- NOTE | 2016-10-18 14:04 | Discharge Summary ---
Hospital Course - Hospital Course Hospital Course: PRIMARY MANAGER APPLE: DR. JOHN LARIOS and DR. GILDARDO NUNES ([place], [place]) Mr. Atkinson is a 56 year old with a past medical history of CAD with previous percutaneous coronary intervention, status post CABG, hypertension, hyperlipidemia, tobacco abuse, paroxysmal atrial fibrillation, and severe ischemic cardiomyopathy with EF 10-15%, previous dual-chamber AICD placement. He presented to the emergency room on 10/11/16 with acute CHF exacerbation/ worsening shortness of breath and subsequent respiratory failure. Chest x-ray revealed pulmonary edema and element of pneumonia. BNP was noted to be 1920. Patient required intubation and admission to the ICU. Echocardiogram on day of admission revealed LV ejection fraction 10-15%, grade 3/4 diastolic dysfunction , severely elevated filling pressures, moderate TR with a PA pressure 45 mmHg. Patient has received diuresis and treatment for right lower lobe infiltrate. Chest x-ray and other clinical findings have improved, and he was able to be extubated 10/14/16. He has done well over the weekend and since transfer from ICU to telemetry on 10/16. He is not having any shortness of breath or chest pain. Labs are stable this morning. Patient reports that his breathing is back to his baseline. He is anxious for discharge. Having felt that patient has met maximal medical therapy, patient will be discharged home in stable condition. Patient's Lasix has been increased to 80 mg twice daily this admission. He will be discharged home on prior preadmission medications. Patient has been given follow up appointment with Dr. Shine in [place], [place] with BMP, magnesium and EKG in 1-2 weeks. Patient verbalizes understanding of discharge instructions and discharge medications. - Time spent with patient Time with patient DS: Greater than 30 minutes Diagnosis - Discharge Diagnosis (1) Ischemic cardiomyopathy Status: Chronic (2) Pulmonary edema Status: Resolved (3) Respiratory failure Status: Resolved (4) CAD (coronary artery disease) Status: Chronic Discharge Plan - Discharge Data Disposition: Disch To Home/Self Care Condition at Discharge: Stable Discharge Diet: heart healthy, low fat, low cholesterol, low salt diet Activity: increase activity as tolerated Hygiene: no restrictions Weight Bearing at Discharge: weight bear as tolerated Driving: not until seen by doctor Contact your physician if you experience:: fever over 101, Difficulty voiding, Redness or swelling, Nausea/Vomiting, Shortness of breath, Bleeding, pain uncontrolled by pain medications - Discharge Medications New Furosemide Tab [Lasix Tab] 80 mg PO BID DIURETIC #60 tablet Continue Nitroglycerin Sl Tab [Nitrostat] 0.4 mg SL Q5M PRN PRN Reason: Chest Pain Amiodarone Tab [Cordarone Tab] 200 mg PO DAILY Albuterol Sulfate [Ventolin HFA] 2 puff INH Q6H PRN PRN Reason: Shortness Of Breath/Wheezing Tamsulosin [Flomax] 0.4 mg PO DAILY Benazepril [Lotensin] 5 mg PO DAILY Apixaban [Eliquis] 5 mg PO Q12H Levothyroxine Tab [Synthroid Tab] 150 mcg PO DAILY Ezetimibe [Zetia] 10 mg PO DAILY Carvedilol [Coreg] 6.25 mg PO BID Discontinued Furosemide Tab [Lasix Tab] 40 mg PO QPM - Follow Up or Referral - Forms/Instructions Additional Discharge Instructions: Please make follow up appointment with trust officer, Dr. Shine in [place], [place] with [facility] with BMP, magnesium and EKG in 1-2 weeks. Exam - Constitutional Vitals: Period Temp Pulse Resp BP Sys/Sims Pulse Ox Last 24 Hr 97 F-99.5 F 67-79 15-20 119-136/68-93 96-99 General appearance: normal weight, no acute distress, other (Awake and alert ) - Head Head exam: Present: normal inspection, normocephalic, atraumatic - Neck Neck exam: Present: normal inspection. Absent: lymphadenopathy, tenderness, thyromegaly - Respiratory Respiratory exam: Present: clear to auscultation bilaterally. Absent: accessory muscle use, chest wall tenderness, rales, rhonchi, stridor, wheezes - Cardiovascular Cardiovascular exam: Present: regular rate and rhythm. Absent: gallop, rubs, systolic murmur - GI/Abdominal GI/Abdominal exam: Present: normal bowel sounds, soft. Absent: distended, firm , mass, tenderness - Extremities Exam Extremities exam: Absent: calf tenderness, edema - Neurological Exam Neurological exam: Present: alert, oriented X3 - Psychiatric Psychiatric exam: Present: normal affect, normal mood. Absent: agitated, anxious - Skin Skin exam: Present: normal color, warm, dry. Absent: cyanosis, erythema Discharge Results Labs on day of discharge: Labs from last 24 hours 10/18/16 10/18/16 10/18/16 11:17 07:08 03:29 Sodium 138 Potassium 4.5 Chloride 101 Carbon Dioxide 27 Anion Gap 14.5 BUN 35 H Creatinine 1.10 GFR Calculation 89 BUN/Creatinine Ratio 31.00 H Glucose 108 H POC Glucose 68 L 76 Calculated Osmolality 283.7 Calcium 8.3 L Magnesium 10/18/16 03:29 Sodium 138 Potassium 4.5 Chloride 102 Carbon Dioxide 26 Anion Gap 14.5 BUN 35 H Creatinine 1.00 GFR Calculation 99 BUN/Creatinine Ratio 35.00 H Glucose 108 H POC Glucose Calculated Osmolality 283.7 Calcium 8.4 L Magnesium 2.6 H - Imaging and Cardiology Procedure: Chest x-ray: report reviewed by me DS: Provider Date of admission: 10/11/16 15:33 Primary care physician: . No PCP Attending physician on admission: Matt Barkley MD Consults: 10/11/16 15:40 Consult to Physician [CONS] Routine Comment: ([employer]. RESP FAILURE). VENT Consulting Provider: Clay Tejeda Person Notified: Dr Tejeda Date Notified: 10/11/16 Time Notified: 18:40 Consult Notification Comment: notified of consult 10/11/16 15:46 Consult to Case Mgmt/Social Srvs [CONS] Routine Reason for Case Mgmt/Social Srvs: Rehab 10/11/16 17:55 Consult to Pharmacy [CONS] Routine Reason for Pharmacy Consult: Adjust Meds Renal Funct 10/14/16 09:37 Consult to Physician [CONS] Routine Comment: Consulting Provider: Daniel Vizcaino Consult to Specialist Group: Neurology When should Consulting Provider be notified: Now Discharging clinician: Samantha Lee NP Expected date of discharge: 10/18/16
== END 2016-10-18 15:28 | disposition home or self-care (01) | DRG 208 ==
LOC: N.ED 12:24 → N.EDINP 15:33 → N.ICU 17:50 → N.TELES 10-16 09:29
PROVIDERS: ADMIT Internal Medicine Cardiovascular Disease; ATTEND Internal Medicine Cardiovascular Disease